=== PATIENT | male | born 1935 | race Caucasian/White ===

== ENCOUNTER 2018-03-18 17:40 | Emergency (ER) | payer MEDICARE ==
--- NOTE | 2018-03-18 18:46 | RAD ---
LEFT FOOT THREE VIEWS: History: 82-year-old male with history of injury following a fall with left foot pain. FINDINGS: Minimal soft tissue swelling over the dorsal aspect of the foot. Worsening arthrosis changes of the f irst metatarsal phalangeal joint with some minimal medial soft tissue swelling when compared to the p rior 06-10-14 study. No acute fracture or dislocation. Small plantar and calcaneal enthesophytes. IMPRESSION: Soft tissue swelling, particularly medially and over the dorsal aspect of the foot with worsening art hrosis changes of the first metatarsal phalangeal joint. No overt acute fracture. POS: [facility]
--- NOTE | 2018-03-18 18:51 | RAD ---
LEFT ANKLE THREE VIEWS: History: Left ankle pain following an injury from a fall. FINDINGS: Minimal generalized soft tissue swelling of the lower leg and ankle and foot. There are some arthrosi s and degenerative changes of the ankle joint. No fracture or dislocation. IMPRESSION: Soft tissue swelling. Degenerative changes. No fracture or dislocation. POS: [facility]
--- NOTE | 2018-03-18 18:55 | RAD ---
LEFT KNEE FOUR VIEWS: History: Left knee pain after a fall at home. FINDINGS: There are degenerative and osteoarthrosis changes of the knee joint. Minimal increased density in the suprapatellar recess, probably some joint fluid. IMPRESSION: Degenerative and osteoarthrosis. No fracture or dislocation. POS: [facility]
[2018-03-18] MEDS ORDERED: Acetaminophen 500 MG TAB ONE (19:24)
[2018-03-18 19:46] LABS: Bilirubin Negative (Negative); Blood, Urine Moderate (Negative); Clarity CLOUDY (Clear); Glucose, Urine (Dipstick) Negative (Negative); Leukocyte Small (Negative); Nitrite Negative (Negative); Protein, Urine (Dipstick) 300 mg/dL (Neg-Trace); Specific Gravity, Urine 1.012 (1.002-1.036); pH, Urine 5.5 (5.0-9.0)
[2018-03-18 19:48] LABS: Bacteria/HPF 4+ HPF (None Seen); Hyaline Casts/LPF 4-6 HYALINE CAST LPF (0-3 Hyaline); Pathc Cast-AUWi Flag 0.58 (0-2.49); RBC/HPF 0-3 HPF (0-3); Squamous Epithelial None Seen HPF (0-3)
[2018-03-18 19:52] LABS: #Lymphocytes 0.8 thou/uL (1.20-3.40); #Monocytes 0.9 thou/uL (0.11-0.59); #Neutrophils 11.2 thou/uL (1.40-6.50); %Basophils 0.2 % (0.0-1.0); %Eosinophils 0.3 % (0.0-10.0); %Lymphocytes 6.2 % (21.0-51.0); %Monocytes 7.1 % (0.0-10.0); %Neutrophils 86.2 % (42.0-75.0); Hemoglobin 11.9 g/dL (14.0-18.0); Mean Corpuscular HGB CONC 34.7 g/dL (32.0-36.0); Mean Corpuscular Hemoglobin 31.9 pg (27.0-31.0); Mean Corpuscular Volume 91.9 fL (78.0-98.0); Mean Platelet Volume 6.5 fL (7.4-10.4); Platelet Count 396 thou/uL (130-400); RBC Distribution Width 13.3 % (11.5-14.5); Red Blood Cell (RBC) Count 3.74 mill/uL (4.70-6.10)
[2018-03-18] MEDS ORDERED: cefTRIAXone\\ROCEPHIN 2 GM VIAL ONE (20:13)
[2018-03-18 20:14] LABS: ALT (SGPT) 15 U/L (8-55); AST (SGOT) 24 U/L (5-34); Albumin 3.5 g/dL (3.4-4.8); Alkaline Phosphatase 45 U/L (40-150); Anion Gap 14 mmol/L (10-20); BUN (Urea Nitrogen) 27 mg/dL (8.4-25.7); Bilirubin, Total 0.9 mg/dL (0.2-1.2); Calc. Creatinine Clearance 0 mL/min (70-130); Calcium 10.6 mg/dL (7.8-10.44); Carbon Dioxide 24 mmol/L (23-31); Chloride 106 mmol/L (98-107); Estimated GFR-MDRD 34; Glucose 123 mg/dL (83-110); Protein, Total 7.5 g/dL (5.8-8.1); Sodium 141 mmol/L (136-145)
[2018-03-18 20:18] LABS: CKMB 1.8 ng/mL (0-6.6); Troponin I 0.046 ng/mL (< 0.028)
[2018-03-18 20:19] LABS: Potassium 2.7 mmol/L (3.5-5.1)
--- NOTE | 2018-03-18 20:24 | RAD ---
UPRIGHT PORTABLE CHEST ONE VIEW: History: 82-year-old male with history of left ankle pain after a fall at home. FINDINGS: Minimal cardiomegaly. Monitor leads overlie the chest. No confluent pneumonia, overt edema, or pleura l effusion. IMPRESSION: Minimal cardiomegaly without other acute process. POS: [facility]
[2018-03-18] MEDS ORDERED: Pot Chloride/Pot Bicarb/Cit Ac 25 mEq Effervescent Tablet ONE (20:33)
[2018-03-18] MEDS ORDERED: Ketorolac Tromethamine 30 MG/ML VIAL ONE (23:45)
[2018-03-18] MEDS ORDERED: traMADol HCl 50 MG TAB ONE (23:47)
== END 2018-03-19 00:24 ==
LOC: ERS 17:40
DX: S83.92XA Sprain of unspecified site of left knee, initial encounter (principal); S93.402A Sprain of unspecified ligament of left ankle, initial encounter; S93.602A Unspecified sprain of left foot, initial encounter; E86.0 Dehydration; N39.0 Urinary tract infection, site not specified; I10 Essential (primary) hypertension; Z79.82 Long term (current) use of aspirin; Z79.899 Other long term (current) drug therapy; W19.XXXA Unspecified fall, initial encounter
CPT/HCPCS: 36415; 71045; 80053; 81003; 81015; 82553; 84484; 85025; 87804; 96361; 96365; 96366; J0696; J1885

== ENCOUNTER 2018-03-29 12:19 | Inpatient (IN) | payer MEDICARE ==
[2018-03-29] MEDS ORDERED: Ondansetron PF 4 MG/2 ML Vial IVP PRN (16:05)
[2018-03-29] MEDS ORDERED: Ondansetron ODT 4 MG TAB PO PRN (16:05)
[2018-03-29] MEDS ORDERED: Nitroglycerin 0.4 MG TAB (25 Tab Bottle) PO PRN (16:05)
[2018-03-29] MEDS ORDERED: Acetaminophen 325 MG TAB PO PRN (16:05)
[2018-03-29] MEDS ORDERED: Senokot S 8.6-50 MG TAB PO PRN (16:05)
[2018-03-29] MEDS ORDERED: Calcium Carbonate 500 MG ChewTAB PO PRN (16:12)
[2018-03-29] MEDS ORDERED: Diabetic Tussin 200 MG/10 ML UDCUP PO PRN (16:13)
[2018-03-29] MEDS ORDERED: Fentanyl 100 MCG/2 ML VIAL SLOW IVP PRN (16:18)
[2018-03-29] MEDS ORDERED: HYDROcodone/Acetaminophen 5/325 mg Tablet PO PRN (16:18)
[2018-03-29 16:43] VITALS: BMI 29.8
[2018-03-29 17:25] LABS: #Eosinphils 0.1 thou/uL (0.0-0.7); #Lymphocytes 0.5 thou/uL (1.20-3.40); #Monocytes 0.2 thou/uL (0.11-0.59); #Neutrophils 7.4 thou/uL (1.40-6.50); %Eosinophils 1.3 % (0.0-10.0); %Lymphocytes 5.5 % (21.0-51.0); %Monocytes 2.6 % (0.0-10.0); %Neutrophils 90.6 % (42.0-75.0); Hemoglobin 8.8 g/dL (14.0-18.0); Mean Corpuscular HGB CONC 31.9 g/dL (32.0-36.0); Mean Corpuscular Hemoglobin 29.3 pg (27.0-31.0); Mean Corpuscular Volume 91.9 fL (78.0-98.0); Mean Platelet Volume 6.6 fL (7.4-10.4); Platelet Count 450 thou/uL (130-400); RBC Distribution Width 14.1 % (11.5-14.5); White Blood Cell (WBC) Count 8.2 thou/uL (4.8-10.8)
--- NOTE | 2018-03-29 17:36 | CON ---
DATE OF CONSULTATION: 03/29/2018 PRIMARY GRIND OPERATOR: Shannon Ricketts M.D. REASON FOR CONSULTATION: Heart failure. HISTORY OF PRESENT ILLNESS: Mr. Pro is a very pleasant 82-year-old white gentleman who comes to the hospital for increased shortness of breath. He recently fell and broken ankle. He has been in rehab for several days. He had an acute kidney injury with creatinine up to 4.8. He has been receiv ing IV fluids ever since. This was on 03/18/2018. Yesterday, he began to get a little more short-wi nded. This morning he was hypoxic and short of breath. Chest x-ray was done that showed fluid overl oad. So he was transferred over from rehab to inpatient setting for IV Lasix, telemetry monitoring a nd an echocardiogram. He is doing much better after receiving one dose of 40 Lasix IV and has alread y urinated some clear urine. He otherwise has no other complaints. Denies any chest pain, tightness , pressure, no shortness of breath per Dr. Ricketts for some back in 2014, at which point he was in atria l fibrillation and had a heart catheterization that showed no flow limiting disease. He most recentl y had an echocardiogram in the office with Dr. Ricketts on May of this year and he had an EF of 50%-5 5%. No major valvular abnormalities. There is moderate AI and mild . Otherwise, no other new iss ues. PAST MEDICAL HISTORY: 1. History of atrial fibrillation. 2. Chronic kidney disease stage 4. 3. Normal coronaries. 4. Hyperlipidemia. 5. Hypertension. 6. Type 2 diabetes. 7. Benign prostatic hypertrophy. 8. Allergies. 9. Nephrolithiasis. 10. Prostate cancer. 11. Rotator cuff repair. OUTPATIENT MEDICATIONS: Include: 1. Tramadol. 2. Benadryl. 3. Triamterene/hydrochlorothiazide 37.5/25 mg a day. 4. Flomax. 5. Klor-Con. 6. Simvastatin with niacin. 7. Metoprolol 50 mg b.i.d. 8. Avapro 300 mg daily. 9. Lasix 20 mg daily. 10. Flonase. 11. Benefiber. 12. Nexium. 13. Colchicine. 14. Lotrisone cream. 15. Citalopram. 16. Vitamin D3. 17. Beconase. 18. Aspirin 81 a day. 19. Amlodipine 10 mg a day. 20. . ALLERGIES: No known drug allergies. SOCIAL HISTORY: No alcohol, tobacco or drugs. He is a former commercial producer. FAMILY HISTORY: Noncontributory. REVIEW OF SYSTEMS: Twelve point review of systems was done and it is all negative except as stated i n the history of present illness. PHYSICAL EXAMINATION: VITAL SIGNS: Temperature 98.2, pulse 80, respiratory rate 16, satting 98% on 3 liters nasal cannula, blood pressure 132/80. GENERAL: Awake, alert, oriented x3, in no distress. HEENT: Normocephalic, atraumatic. NECK: Supple. LUNGS: Had mild crackles at bilateral bases. CARDIOVASCULAR: S1, S2, no S3, S4. Irregularly irregular heart rate in the 80s. ABDOMEN: Soft, positive bowel sounds. EXTREMITIES: No edema. SKIN: Warm and dry. LABORATORY DATA: Laboratory work was reviewed from recent admission on 03/29/2018, hemoglobin of 8.2 , hematocrit of 27, platelet count of 442, white count of 7.8. Chemistries with a creatinine back on 03/18/2018 of 1.9, increased all the way to 4.3 on 03/22/2018 and is back down to 2.65, GFR was 23. IMAGING DATA: 1. CT of the brain was reviewed. 2. Chest x-ray was reviewed. Findings consistent with CHF. ASSESSMENT AND PLAN: 1. Acute on chronic diastolic heart failure. 2. Acute kidney injury on chronic kidney disease, currently stage 4. 3. Moderate AI and mild . PLAN: 1. Agree with gentle diuresis with 40 mg IV Lasix. We will take it a day by day basis to see when w e can switch him to orals. 2. Echocardiogram pending. 3. Continue other medications. Avoid nephrotoxic agents. Thank you for letting us to participate in the care of your patient. We will follow.
[2018-03-29 17:46] LABS: Troponin I 0.021 ng/mL (< 0.028)
[2018-03-29] MEDS: predniSONE 20 MG TAB PO SCH (17:50)
[2018-03-29 18:03] LABS: ALT (SGPT) 17 U/L (8-55); AST (SGOT) 38 U/L (5-34); Albumin 2.7 g/dL (3.4-4.8); Alkaline Phosphatase 37 U/L (40-150); Anion Gap 17 mmol/L (10-20); BUN (Urea Nitrogen) 76 mg/dL (8.4-25.7); Bilirubin, Total 0.3 mg/dL (0.2-1.2); Calc. Creatinine Clearance 29 mL/min (70-130); Calcium 9.8 mg/dL (7.8-10.44); Carbon Dioxide 18 mmol/L (23-31); Chloride 110 mmol/L (98-107); Estimated GFR-MDRD 23; Globulin 3.6 g/dL (2.4-3.5); Glucose 116 mg/dL (83-110); Potassium 4.6 mmol/L (3.5-5.1); Protein, Total 6.3 g/dL (5.8-8.1); Sodium 140 mmol/L (136-145)
--- NOTE | 2018-03-29 18:07 | HP ---
DATE OF ADMISSION: 03/29/2018 PRIMARY CARE PHYSICIAN: Dr. Monique. PRIMARY PRINCIPAL PRODUCT MANAGER: Dr. Mike Ricketts. CHIEF COMPLAINT: Shortness of breath/volume overload. The patient is a transfer from inpatient rehabilitation. HISTORY OF PRESENT ILLNESS: The patient is an 82-year-old male with paroxysmal atrial fibrillation, hypertension, hyperlipidemia, and diabetes mellitus type 2 , presented to the emergency room 10 days ago with an episode of fall. He was discharged to inpatient rehabilitation at that time. One week prior to this, he had a right ankle fracture (lateral malleolar fracture) that was that was managed conservatively. He was also found to have acute kidney injury with creatinine of 4.31. He was placed on IV fluids at the rehabilitation. Over the last few days, patient developed gradual worsening shortness of breath. The shortness of breath got worse today. IV fluids were discontinued. He was started on IV Lasix. He also had some altered mentation yesterday that was attributed to Tylenol No. 3. A CT scan of the brain was obtained yesterday that was negative. He underwent a chest x-ray earlier today that showed pulmonary vascular congestion. He was sent to the hospital as a direct admit from the rehabilitation for possible congestive heart failure. He also had a recent gout flare at the rehabilitation. He was placed on prednisone taper yesterday. Patient also had some dark stool earlier today and stool for occult blood came back positive at the rehabilitation. PAST MEDICAL HISTORY: 1. Chronic kidney disease stage 3. 2. Diabetes mellitus type 2. 3. Hypertension. 4. Hyperlipidemia. 5. History of renal calculi. 6. Rotator cuff surgery. 7. Recent right ankle fracture. 8. Gout. 9. Physical deconditioning. 10. Negative cardiac catheterization in [address] Ricketts. 11. Aortic valve regurgitation. 12. History of prostate cancer. 13. Paroxysmal atrial fibrillation. PAST SURGICAL HISTORY: 1. Cardiac catheterization. 2. Rotator cuff surgery. ALLERGIES: No known drug allergies. CURRENT HOME MEDICATIONS: At the rehabilitation. Tylenol No. 3 as needed, aspirin 81 mg daily, cholecalciferol 1000 units daily, citalopram 20 mg daily, clonidine 0.05 mg daily, colchicine 0.6 mg b.i.d., vitamin B12 of 1000 mcg daily , fenofibrate 145 mcg daily, metoprolol tartrate 50 mg b.i.d., mirabegron 50 mg extended release daily, multivitamin 1 tablet daily, Procardia-XL 30 mg b.i.d., Protonix 40 mg daily, MiraLax 17 grams daily, potassium chloride 10 mEq daily, Flomax 0.4 mg b.i.d. SOCIAL HISTORY: Patient currently lives at home with his family. He denies any current use of smoking, alcohol or drug use. He is FULL [employer], makes his own decisions with the help of his family. FAMILY HISTORY: Negative for premature coronary artery disease. REVIEW OF SYSTEMS: The following complete review of systems was negative, unless otherwise mentioned in the HPI or below: Constitutional: Weight loss or gain, ability to conduct usual activities. Skin: Rash, itching. Eyes: Double vision, pain. ENT/Mouth: Nose bleeding, neck stiffness, pain, tenderness. Cardiovascular: Palpitations, dyspnea on exertion, orthopnea. Respiratory: Shortness of breath, wheezing, cough, hemoptysis, fever or night sweats. Gastrointestinal: Poor appetite, abdominal pain, heartburn, nausea, vomiting, constipation, or diarrhea. Genitourinary: Urgency, frequency, dysuria, nocturia. Musculoskeletal: Pain, swelling. Neurologic/Psychiatric: Anxiety, depression. Allergy/Immunologic: Skin rash, bleeding tendency. PHYSICAL EXAMINATION: VITAL SIGNS: Earlier today showed temperature 98.2, heart rate 73, respiration rate 18, blood pressure was 114/66, O2 saturation of 96% on nasal cannula. GENERAL: An 82-year-old male in minimal respiratory distress. HEENT: Atraumatic, normocephalic. Sclerae are anicteric. Moist mucous membrane, no oral lesion. NECK: Supple, no JVD appreciated. No carotid bruit. LUNGS: Showed diminished air entry at bilateral bases with scattered rhonchi. There were few rales at the bases. There was minimal accessory muscle use. HEART: S1, S2 present. Irregularly irregular, 2/6 systolic murmur over the left lateral sternal border. No heaves or pulsation. ABDOMEN: Soft, nontender, bowel sounds present, no rebound or guarding. EXTREMITIES: Bilateral lower extremity edema up to 3+. There is a brace in the right leg. SKIN: Warm and dry. LYMPH NODES: No palpable lymph nodes in the neck. PERIPHERAL VASCULAR: Radial pulses palpable bilaterally. MUSCULOSKELETAL: No joint swelling or tenderness. LABORATORY FINDINGS: CBC earlier today showed WBC 7.8, hemoglobin 8.2, hematocrit 27, platelet count of 442. His hemoglobin 10 days ago was 11.9. Chemistries showed a creatinine 2.65 with BUN 77. His creatinine last week was 4.31, sodium 139, potassium 4.4, chloride 112, bicarbonate 18. Urinalysis last week showed UTI. Family report, patient has completed treatment. Stool for occult blood yesterday was positive. Influenza screen yesterday was negative. Chest x-ray by my review showed findings consistent with congestive heart failure. Telemetry monitoring by my review showed atrial fibrillation. IMPRESSION: 1. Volume overload/suspected acute on chronic diastolic heart failure exacerbation. 2. Acute kidney injury on chronic kidney disease stage 3. 3. Recent right ankle fracture. 4. Melena with acute blood loss anemia 5. Recent urinary tract infection, completed antibiotics per family report. 6. Hypertension. 7. Diabetes mellitus type 2. diet controlled. 8. Hyperlipidemia. 9. Gastroesophageal reflux disease. 10. Benign prostatic hypertrophy. 11. Gout with recent flare, currently on prednisone. 12. Recent toxic metabolic encephalopathy secondary to narcotics, improved. 13. Bilateral lower extremity edema with some tenderness, rule out deep venous thrombosis. PLAN: The patient will be monitored on the telemetry unit. We will start him on IV diuretics with Lasix 40 mg IV daily. Cardiology and Nephrology will be consulted. Echocardiogram will be obtained. Hold aspirin. We will repeat labs including troponins. Fluid restriction. Consult physical therapy, occupation therapy. Deep venous thrombosis prophylaxis with sequential compression devices for now. We will avoid heparin or Lovenox due to suspected gastrointestinal bleeding. Plan of care was discussed with the patient and the family in detail. They stated understanding. MTDD
[2018-03-29] MEDS ORDERED: Cepastat Lozenges 1 LOZ PO PRN (19:10)
[2018-03-29] MEDS: NIFEdipine XL 30 MG TAB PO SCH (21:09)
[2018-03-29] MEDS: Tamsulosin HCl 0.4 MG CAP PO SCH (21:10)
[2018-03-29] MEDS: Metoprolol Tartrate 50 MG TAB PO SCH (21:11)
[2018-03-30 05:51] LABS: #Eosinphils 0.1 thou/uL (0.0-0.7); #Lymphocytes 0.8 thou/uL (1.20-3.40); #Monocytes 0.3 thou/uL (0.11-0.59); #Neutrophils 5.9 thou/uL (1.40-6.50); %Basophils 0.1 % (0.0-1.0); %Eosinophils 1.1 % (0.0-10.0); %Lymphocytes 10.7 % (21.0-51.0); %Monocytes 4.1 % (0.0-10.0); Hemoglobin 8.3 g/dL (14.0-18.0); Mean Corpuscular HGB CONC 31.4 g/dL (32.0-36.0); Mean Corpuscular Hemoglobin 28.7 pg (27.0-31.0); Mean Corpuscular Volume 91.3 fL (78.0-98.0); Mean Platelet Volume 6.3 fL (7.4-10.4); Platelet Count 407 thou/uL (130-400); RBC Distribution Width 14.1 % (11.5-14.5)
[2018-03-30 06:14] LABS: Anion Gap 14 mmol/L (10-20); BUN (Urea Nitrogen) 72 mg/dL (8.4-25.7); Calc. Creatinine Clearance 29 mL/min (70-130); Calcium 9.9 mg/dL (7.8-10.44); Carbon Dioxide 20 mmol/L (23-31); Chloride 111 mmol/L (98-107); Estimated GFR-MDRD 23; Glucose 105 mg/dL (83-110); Potassium 4.2 mmol/L (3.5-5.1); Sodium 141 mmol/L (136-145)
--- NOTE | 2018-03-30 08:37 | ULT ---
ULTRASOUND WITH DOPPLER DUPLEX VENOUS LOWER EXTREMITY BILATERAL: CPT: 60022 ICD-10-PCS: B54D HISTORY: Bilateral lower extremity edema. TECHNIQUE: Color flow Doppler, spectral waveform analysis of pulsed Doppler, and hedrick-scale imaging with risa fina and augmentation, were used to evaluate the bilateral common femoral, femoral, popliteal, acid cleaner ior tibial, and superficial femoral, veins; and the proximal portions of the profunda femoral and gre ater saphenous, veins. FINDINGS: There is appropriate compressibility and flow within the imaged deep vein system of each lower extrem ity without evidence of DVT. IMPRESSION: No deep vein thrombosis identified. POS: [facility]
[2018-03-30] MEDS ORDERED: Furosemide 40 MG/4 ML VIAL SLOW IVP SCH (09:00)
[2018-03-30] MEDS ORDERED: Aspirin 81 mg Enteric Coated Tablet PO SCH (09:00)
--- NOTE | 2018-03-30 09:33 | CON ---
DATE OF CONSULTATION: 03/30/2018 HISTORY OF PRESENT ILLNESS: Mr. Pro is an 82-year-old white male who was transferred from the [facility] for new onset congestive heart failure. I was following this patient at the rehab for his acute kidney injury on top of his chronic renal failure. He was given volume repletion for creatinine of 3.2. This improved with the said volume repletion. However, 2 days later, he developed CHF. The fe eling is that this could be simply from a volume overload standpoint. However, Cardiology has been c onsulted and he will be reevaluated. Please note that this patient had cardiac catheterization back in 2014, which was negative. The patient also has longstanding history of gout. We are now following this patient for his acute kidney injury on top of his chronic renal failure. REVIEW OF SYSTEMS: Shortness of breath is much improved. No chest pain, no syncopal episode, no monse sea, no vomiting. No hematochezia, ? of melena, no hematemesis, no abdominal pain. Positive for rig ht ankle and joint pain. 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 PAST SURGICAL HISTORY: 1. Status post cardiac catheterization. 2. Status post rotator cuff surgery. ALLERGIES: No known drug allergies. TRAUMA: Status post right ankle fracture. IMMUNIZATIONS: Up to date. HOSPITALIZATION: Please see past medical history. SOCIAL HISTORY: The patient has a live-in girlfriend, several children. Currently, no smoking, no a lcohol intake, sedentary lifestyle. FAMILY HISTORY: No family history of ESRD. PHYSICAL EXAMINATION: VITAL SIGNS: Blood pressure is 145/72, heart rate 101, respiratory rate 18, temperature 98.4, pulse ox 95%. GENERAL: Noted to be awake, alert, comfortable, not in distress, obese. SKIN: Adequate turgor. HEENT: Slightly pale conjunctivae, anicteric sclerae. NECK: No neck mass, no carotid bruits, no JVD. CHEST: No deformities. LUNGS: Decreased breath sounds. HEART: Tachycardic, no murmur, no gallops or rubs. ABDOMEN: Globular, soft, nontender, no masses. EXTREMITIES: Trace edema. Positive for right ankle cast. NEUROLOGICAL: Awake, oriented to 3 spheres. Moving all extremities. No tremors, no asterixis, no a taxia. MEDICATIONS: DuoNeb q.2 hours p.r.n. and q.4 hours regular treatment, Tums 1000 mg q.4 hours p.r.n., Lasix 40 mg IV daily, clonidine 0.5 mg - half a tablet daily, Celexa 20 mg daily, Lopressor 50 mg p. o. b.i.d., nifedipine 30 mg p.o. b.i.d., Zofran p.r.n., MiraLax 17 grams daily, prednisone 10 mg p.o. b.i.d., Flomax 0.4 mg once a day. LABORATORY DATA: Of 03/30/2018, white count 7, hemoglobin 8.3, hematocrit 26.5, sodium 141, potassiu m 4.2, chloride 111, carbon dioxide 20, BUN 72, creatinine 2.71. On 03/29/2018, creatinine 2.65. On 03/28/2018, creatinine 2.84. On 03/27/2018, creatinine 3.17. IMAGING: Chest x-ray shows CHF. ASSESSMENT AND PLAN: 1. New onset congestive heart failure - on IV Lasix. Continue current management. Cardiology has e valuated the patient. 2. Acute kidney injury/chronic renal failure, stable. Continue current low dose diuretic regimen. Continue to hold off any normal saline for the moment. 3. Status post right ankle fracture - stable. Supportive care. If the patient is stable in the next 24-48 hours, consider discharging him back to rehabilitation.
[2018-03-30] MEDS: Metoprolol Tartrate 50 MG TAB PO SCH ×2 (09:36→20:43)
[2018-03-30] MEDS: NIFEdipine XL 30 MG TAB PO SCH ×2 (09:36→20:43)
[2018-03-30] MEDS: Citalopram 20 MG TAB PO SCH (09:37)
[2018-03-30] MEDS: cloNIDine 0.1 MG TAB PO SCH (09:37)
[2018-03-30] MEDS: predniSONE 20 MG TAB PO SCH ×2 (09:37→16:55)
[2018-03-30] MEDS: Polyethylene Glycol 3350 17 GM Packet PO SCH (09:38)
[2018-03-30] MEDS: Pantoprazole 40 MG VIAL IVP SCH ×2 (09:38→20:44)
[2018-03-30 10:14] LABS: Hemoglobin 8.5 g/dL (14.0-18.0)
[2018-03-30 10:38] LABS: Iron 28 ug/dL (65-175); Iron Binding Capacity, Total 221 mcg/dL (261-462)
[2018-03-30] MEDS ORDERED: Cepastat Lozenges 1 LOZ PO PRN (10:46)
--- NOTE | 2018-03-30 14:29 | PDOC.CTH ---
Cardiology Progress Note - Subjective No new issues. His breathing is better today. - Objective Vital Signs Temp Pulse Resp BP Pulse Ox 03/30/18 12:25 97.6 F 94 18 154/81 H 96 03/30/18 10:45 89 16 94 L 03/30/18 09:20 95 03/30/18 07:21 98.4 F 101 H 18 145/72 H 95 03/30/18 07:01 94 16 92 L 03/30/18 03:40 97.7 F 89 20 140/76 96 Weight 205 lb 2 oz 03/29/18 03/30/18 03/31/18 06:59 06:59 06:59 Intake Total 175 Output Total 2200 Balance -2024 - Physical Examination General/Neuro: alert & oriented x3, NAD Neck: no JVD present Lungs: unlabored respirations Heart: RRR Abdomen: NT/ND Extremities: + edema B (1+) - Telemetry Telemetry Rhythm: NSR - Labs Result Diagrams: 03/30/18 09:54 03/30/18 05:31 Troponin/CKMB Troponin I 0.021 ng/mL (< 0.028) 03/29/18 17:14 - Assessment/Plan 1. Acute on chronic diastolic heart failure. 2. Acute on chronic kidney injury 3. Moderate AI 4. Mild . 5. Chronic anemia, suspect chronic GI source. 6. Paroxysmal foib PLAN: - Continue gentle diuresis. - CAMPBELL's and SCD for DVT prophylaixs.
--- NOTE | 2018-03-30 15:39 | CON ---
DATE OF CONSULTATION: 03/30/2018 CONSULTING PHYSICIAN: Toño Schwartz MD. REASON FOR CONSULTATION: Positive fecal occult blood test, anemia. HISTORY OF PRESENT ILLNESS: The patient is an 82-year-old male with a past medical history of paroxy smal atrial fibrillation, hypertension, hyperlipidemia, diabetes, gout, chronic kidney disease, stage 3, and prostate cancer, who was initially admitted to the hospital 10 days ago after a fall. He jose alfredo tained a right ankle fracture that was managed conservatively and ultimately discharged to [facility] for further management. However, he was also found to have an acute kidney injury whil e at the [facility] and was given IV fluids there in order to correct his worsening reinier l function. With his increased IV fluid administration, he started developing increased shortness of breath as well as increased swelling in his lower extremities that were concerning for hypervolemia. During the same time, he was also given Tylenol #3 for pain associated with the right ankle fractur e and exhibited acute altered mental status with a loss of sensorium that corrected with discontinuat ion of the narcotic. He was subsequently readmitted and reevaluated in the ER on 03/29/2018 with a c hest x-ray showing increased pulmonary vascular congestion concerning for possible congestive heart f ailure. While in the ER, he had a fecal occult blood test performed secondary to anemia noted on lab s, which was then positive. Upon conferring with the patient and family today, he states that he did have a darker stool yesterda y, but it was not black in coloration and was solid in consistency. He further denies any overt GI b lood loss including hematemesis or hematochezia. He has approximately one solid/soft bowel movement per day with no difficulty with defecation and no change in his stool caliber over the last 1-2 month s. He also denies any nausea, vomiting, fevers, chills, abdominal pain, weight loss, odynophagia, dy sphagia, or abdominal pain during the last 1-2 months. Of note, his last colonoscopy was performed o n 06/19/2007 with a small sigmoid colon polyp removed at that time. Pathology results showed the pre sence of a lymphoid aggregate only. REVIEW OF SYSTEMS: A 10-category review of systems was obtained with all responses negative except f or the pertinent positives as listed in the HPI. PAST MEDICAL HISTORY: As per HPI. PAST SURGICAL HISTORY: Rotator cuff hip surgery, right ankle fracture reduction, and cardiac cathete rization. FAMILY HISTORY: Denies any family history of colon polyps or colon cancer. SOCIAL HISTORY: Denies any tobacco, alcohol or illicit drug use. OUTPATIENT MEDICATIONS: Reviewed. ALLERGIES: No known drug allergies. PHYSICAL EXAMINATION: VITAL SIGNS: Temperature 97.6, pulse 94, blood pressure 154/81, respiratory rate 18, satting 96% on 2 liters nasal cannula. GENERAL: The patient was lying in bed, in no acute distress. Alert and oriented x4. NECK: Supple. No JVD noted. No cervical chain or supraclavicular lymphadenopathy noted either. CARDIOVASCULAR: Irregularly irregular heart rate with no discernible murmurs, gallops or rubs. RESPIRATORY: Mild crackles in the bilateral lower lung bases with possible wheezing noted in the rula ateral lower lung bases, otherwise clear to auscultation in the upper bilateral lungs. ABDOMEN: Normoactive bowel sounds, soft, nontender, nondistended. EXTREMITIES: A 1+/2+ bilateral lower extremity edema to the knee. LABORATORY DATA: CBC with a white blood cell count of 7, hemoglobin 8.3, hematocrit 26.5, platelets 407. Chemistry with a sodium of 141, potassium 4.2, chloride 111, CO2 of 20, BUN 72, creatinine 2.71 , glucose 105. MCV 91, RDW 14. Iron 28, TIBC 221, ferritin 170. IMAGING DATA: Chest x-ray was performed on 03/29/2018, which showed cardiomegaly with mild edema con sistent with mildly decompensated congestive heart failure. ASSESSMENT AND PLAN: The patient is an 82-year-old male with past medical history of paroxysmal atri al fibrillation, hypertension, hyperlipidemia, diabetes, gout, chronic kidney disease stage 3, and pr ostate cancer presenting with anemia and positive fecal occult blood testing. Anemia/possible GI bleed: The patient is presenting with a recent history of right ankle fracture th at was ultimately intervened upon during his last hospitalization with [facility] physical deconditioning. While in the rehabilitation facility, he was given a signifi cant amount of IV fluids, resulting in mild decompensated congestive heart failure as seen on physica l examination today as well as imaging. During that time, he was also noted to have a decreased H&H with his white blood cell count, his H&H and platelets downtrending initially with the administration of IV fluids, suggesting a hemodilutional component. He has remained stable over the last 5-7 days since that time with iron studies indicating more of an anemia of chronic disease. He also has a nor mal MCV and normal RDW, which further leans away from a diagnosis of iron deficiency anemia or chroni c gastrointestinal blood loss. At this time, his anemia seems to be more related to an anemia of chr onic disease rather than a GI origin with the only indicator of a possible GI bleeding source being a positive fecal occult blood test (the patient denies any melenic type stools). Being that the fecal occult blood test is only a colorectal cancer screening test with a poor positive predictive value f or active gastrointestinal bleeding, the patient may need a screening colonoscopy here in the near fu ture; however, given his significant medical comorbidities and congestive heart failure on examinatio n today, delay in this colonoscopy is recommended. RECOMMENDATIONS: 1. We would continue to trend H&H and transfuse as necessary to maintain an H&H of 11/25. 2. We would continue to monitor for signs of GI bleeding while inpatient. 3. Would defer colonoscopy for now given lack of findings of chronic gastrointestinal blood loss and with recent colonoscopy being approximately 10 years ago with normal findings. Would recommend ally sousa the patient follow up in the GI clinic with Dr. Dominique as an outpatient after optimization of his cu rrent clinical status. We will sign off at this time. Please call with any additional questions.
--- NOTE | 2018-03-30 16:12 | PDOC.PN ---
- Subjective Encounter Start Date: 03/30/18 Encounter Start Time: 09:00 Patient seen and examined for CHF/Volume overload. Feels better. No new complaints. No overnight events - Objective Resuscitation Status: Resuscitation Status FULL:Full Resuscitation MAR Reviewed: Yes Vital Signs & Weight: Vital Signs (12 hours) Temp Pulse Resp BP Pulse Ox 03/30/18 15:04 97 16 95 03/30/18 12:25 97.6 F 94 18 154/81 H 96 03/30/18 10:45 89 16 94 L 03/30/18 09:20 95 03/30/18 07:21 98.4 F 101 H 18 145/72 H 95 03/30/18 07:01 94 16 92 L Weight Weight 205 lb 2 oz I&O: 03/29/18 03/30/18 03/31/18 06:59 06:59 06:59 Intake Total 175 Output Total 2200 Balance -2024 Result Diagrams: 03/30/18 16:44 03/30/18 05:31 EKG Reviewed by me: Yes (Tele Afib) Phys Exam - Physical Examination Constitutional: NAD Respiratory: no wheezing, no rhonchi few bibasilar rales Cardiovascular: RRR, no rub Gastrointestinal: soft, non-tender, positive bowel sounds Musculoskeletal: edema present Neurological: non-focal Dx/Plan - Plan IMPRESSION: 1. Volume overload/suspected acute on chronic diastolic heart failure exacerbation. 2. Acute kidney injury on chronic kidney disease stage 3. 3. Recent right ankle fracture. 4. ?Melena with acute blood loss anemia 5. Recent urinary tract infection, completed antibiotics per family report. 6. Hypertension. 7. Diabetes mellitus type 2. diet controlled. 8. Hyperlipidemia. 9. Gastroesophageal reflux disease. 10. Benign prostatic hypertrophy. 11. Gout with recent flare, currently on prednisone. 12. Recent toxic metabolic encephalopathy secondary to narcotics, improved. 13. Bilateral lower extremity edema - DVT ruled out PLAN: Cont IV Lasix Await Echo AM labs Clear liqd diet for possible Endoscopy Cont other meds as below PT/OT SCDs Review of Systems - Review of Systems Cardiovascular: negative: chest pain, palpitations, orthopnea, paroxysmal nocturnal dyspnea, edema, light headedness, other Genitourinary: negative: Dysuria, Frequency, Incontinence, Hematuria, Retention , Other - Medications/Allergies Allergies/Adverse Reactions: Allergies Allergy/AdvReac Type Severity Reaction Status Date / Time No Known Allergies Allergy Verified 06/09/14 03:46 Medications: Current Medications Acetaminophen (Tylenol) 650 mg PO Q4H PRN PRN Reason: Headache/Fever/Mild Pain (1-3) Albuterol/Ipratropium (Duoneb) 3 ml NEB [id number] [facility] Last Admin: 03/30/18 15:04 Dose: 3 ml Albuterol/Ipratropium (Duoneb) 3 ml NEB [id number] PRN PRN Reason: SOB &/or Wheezing Calcium Carbonate (Tums) 1,000 mg PO Q4H PRN PRN Reason: Heartburn or Indigestion Citalopram Hydrobromide (Celexa) 20 mg PO DAILY [facility] Last Admin: 03/30/18 09:37 Dose: 20 mg Clonidine (Catapres) 0.05 mg PO DAILY [facility] Last Admin: 03/30/18 09:37 Dose: 0.05 mg Furosemide (Lasix) 40 mg SLOW IVP DAILY [facility] Last Admin: 03/30/18 09:38 Dose: 40 mg Guaifenesin (Robitussin Sf) 200 mg PO Q4H PRN PRN Reason: Cough Metoprolol Tartrate (Lopressor) 50 mg PO BID [facility] Last Admin: 03/30/18 09:36 Dose: 50 mg Mirabegron (Myrbetriq Er) 50 mg PO DAILY [facility] Last Admin: 03/30/18 09:37 Dose: 50 mg Nifedipine (Procardia Xl) 30 mg PO BID [facility] Last Admin: 03/30/18 09:36 Dose: 30 mg Nitroglycerin (Nitrostat) 0.4 mg PO Q5MIN PRN PRN Reason: Chest Pain Ondansetron HCl (Zofran Odt) 4 mg PO Q6H PRN PRN Reason: Nausea/Vomiting Ondansetron HCl (Zofran) 4 mg IVP Q6H PRN PRN Reason: Nausea/Vomiting Pantoprazole Sodium (Protonix) 40 mg IVP Q12HR [facility] Last Admin: 03/30/18 09:38 Dose: 40 mg Polyethylene Glycol (Miralax) 17 gm PO DAILY [facility] Last Admin: 03/30/18 09:38 Dose: Not Given Prednisone (Prednisone) 10 mg PO BID-[facility] Last Admin: 03/30/18 09:37 Dose: 10 mg Senna/Docusate Sodium (Senokot S) 2 tab PO BID PRN PRN Reason: Constipation Sodium Chloride (Flush - Normal Saline) 10 ml IVF PRN PRN PRN Reason: Saline Flush Tamsulosin HCl (Flomax) 0.4 mg PO HS [facility] Last Admin: 03/29/18 21:10 Dose: 0.4 mg Throat Lozenges (Cepastat Lozenges) 1 beatrice PO Q2H PRN PRN Reason: Cough Throat Lozenges (Cepastat Lozenges) 1 beatrice PO Q2H PRN PRN Reason: Sore Throat
[2018-03-30 16:50] LABS: Hemoglobin 8.8 g/dL (14.0-18.0)
[2018-03-30] MEDS: Tamsulosin HCl 0.4 MG CAP PO SCH (20:43)
[2018-03-31 04:56] LABS: #Eosinphils 0.1 thou/uL (0.0-0.7); #Lymphocytes 0.8 thou/uL (1.20-3.40); #Monocytes 0.4 thou/uL (0.11-0.59); #Neutrophils 7.3 thou/uL (1.40-6.50); %Eosinophils 1.5 % (0.0-10.0); %Lymphocytes 8.7 % (21.0-51.0); %Monocytes 4.3 % (0.0-10.0); %Neutrophils 85.5 % (42.0-75.0); Hemoglobin 8.6 g/dL (14.0-18.0); Mean Corpuscular HGB CONC 32.1 g/dL (32.0-36.0); Mean Corpuscular Volume 90.2 fL (78.0-98.0); Mean Platelet Volume 6.5 fL (7.4-10.4); Platelet Count 405 thou/uL (130-400); RBC Distribution Width 14.2 % (11.5-14.5); Red Blood Cell (RBC) Count 2.97 mill/uL (4.70-6.10); White Blood Cell (WBC) Count 8.6 thou/uL (4.8-10.8)
[2018-03-31 05:19] LABS: Anion Gap 15 mmol/L (10-20); BUN (Urea Nitrogen) 66 mg/dL (8.4-25.7); Calc. Creatinine Clearance 28 mL/min (70-130); Calcium 9.8 mg/dL (7.8-10.44); Carbon Dioxide 23 mmol/L (23-31); Chloride 106 mmol/L (98-107); Estimated GFR-MDRD 22; Glucose 104 mg/dL (83-110); Potassium 3.9 mmol/L (3.5-5.1); Sodium 140 mmol/L (136-145)
[2018-03-31] MEDS ORDERED: Sodium Chloride 0.65% Nasal 44 ML BOT EA NARE PRN (09:27)
[2018-03-31] MEDS: cloNIDine 0.1 MG TAB PO SCH (09:49)
[2018-03-31] MEDS: Furosemide 20 MG TAB PO SCH (09:50)
[2018-03-31] MEDS: predniSONE 20 MG TAB PO SCH (09:50)
[2018-03-31] MEDS: Metoprolol Tartrate 50 MG TAB PO SCH ×2 (09:50→20:15)
[2018-03-31] MEDS: NIFEdipine XL 30 MG TAB PO SCH ×2 (09:50→20:16)
[2018-03-31] MEDS: Citalopram 20 MG TAB PO SCH (09:51)
[2018-03-31] MEDS: Polyethylene Glycol 3350 17 GM Packet PO SCH (09:51)
[2018-03-31] MEDS: Pantoprazole 40 MG VIAL IVP SCH ×2 (09:51→20:17)
--- NOTE | 2018-03-31 10:36 | PRG ---
DATE OF SERVICE: 03/31/2018 RENAL MEDICINE SUBJECTIVE: Mr. Pro is an 82-year-old white male who was at rehab, was admitted for CHF. He wa s started to be diuresed with improvement with the shortness of breath. In addition, a cardiac echo was done, which showed a normal EF. He most likely has diastolic dysfunction. He was initially volu me repleted due to the worsening renal dysfunction back at the rehabilitation. I noted the creatinin e was noted at 2.8, which is slightly higher from yesterday at 2.71. The plan is to change Lasix to 20 mg tab once a day from 40 mg IV daily. He was also evaluated by the GI Service, Dr. Coburn and the recommendation is to observe this patient and to give blood as needed. He will follow up as an outp atient with Dr. Dominique for a possible repeat colonoscopy. No other complaints. He is feeling better. OBJECTIVE: VITAL SIGNS: Blood pressure is 170/89, heart rate 86, respiratory rate 18, temperature 98, pulse ox 95%. GENERAL: Noted to be awake, alert, comfortable, not in distress. SKIN: Adequate turgor. HEENT: Slightly pale conjunctivae, anicteric sclerae. NECK: No neck mass, no carotid bruits, no JVD. CHEST: No deformities. LUNGS: Decreased breath sounds. HEART: Normal sinus rhythm. No murmur, no gallops, no rubs. ABDOMEN: Globular, soft, nontender, no masses. EXTREMITIES: No edema. Right ankle brace. MEDICATIONS: Medications of 03/31/2018 was reviewed. LABORATORY DATA: Laboratories of 03/31/2018, white count 8.6, hemoglobin 8.6. Sodium 140, potassium 3.9, chloride 106, carbon dioxide 23, BUN 66, creatinine 2.8, glucose 104, calcium 9.8. ASSESSMENT AND PLAN: 1. Acute kidney injury -- stable. Renal function slightly high at 2.8 from 2.71 yesterday. We will decrease dose of furosemide from 40 to 20 mg tablet once a day. 2. Congestive heart failure, clinically much improved. Continue supportive care. Normal EF on card iac echo. 3. Chronic anemia. Continue to observe. No recommendations for colonoscopy at this hospitalization . From a renal point of view, this patient can be discharged back to rehabilitation.
--- NOTE | 2018-03-31 18:47 | PDOC.PN ---
- Subjective Encounter Start Date: 03/31/18 Encounter Start Time: 08:30 Patient seen and examined for Volume overload. SOB improving. No Melena or hematochezia. No other complaints. No overnight events - Objective Resuscitation Status: Resuscitation Status FULL:Full Resuscitation MAR Reviewed: Yes Vital Signs & Weight: Vital Signs (12 hours) Temp Pulse Resp BP Pulse Ox 03/31/18 16:58 98.0 F 107 H 18 159/78 H 03/31/18 14:20 112 H 24 H 03/31/18 11:46 97.8 F 85 20 161/79 H 97 03/31/18 11:30 88 20 03/31/18 09:00 105 H 165/84 H 03/31/18 07:40 96 03/31/18 07:38 98 20 96 Weight Weight 205 lb 11.2 oz I&O: 03/30/18 03/31/18 04/01/18 06:59 06:59 06:59 Intake Total 175 1400 Output Total 2200 2750 550 Balance -2025 -1350 -550 Result Diagrams: 03/31/18 04:17 03/31/18 04:17 Additional Labs: Accuchecks 03/30/18 20:35 POC Glucose 143 H Phys Exam - Physical Examination Constitutional: NAD Respiratory: no wheezing, no rhonchi bibasilar rales Cardiovascular: no rub, irregular Gastrointestinal: soft, non-tender, positive bowel sounds Musculoskeletal: edema present Neurological: moves all 4 limbs Dx/Plan - Plan DVT proph w/SCDs IMPRESSION: 1. Volume overload/suspected acute on chronic diastolic heart failure exacerbation. 2. Acute kidney injury on chronic kidney disease stage 3. 3. Recent right ankle fracture. 4. ?Melena with acute blood loss anemia 5. Recent urinary tract infection, completed antibiotics per family report. 6. Hypertension. 7. Diabetes mellitus type 2. diet controlled. 8. Hyperlipidemia. 9. Gastroesophageal reflux disease. 10. Benign prostatic hypertrophy. 11. Gout with recent flare, currently on prednisone. 12. Recent toxic metabolic encephalopathy secondary to narcotics, improved. 13. Bilateral lower extremity edema - DVT ruled out PLAN: Cont Lasix - change to PO Echo reviewed Colonoscopy as outpt Taper Prednisone AM labs DC to Rehab in AM if stable Cont other meds as below Review of Systems - Review of Systems Respiratory: SOB with Excertion. negative: Cough, Dry, Shortness of Breath, Hemoptysis, Pleuritic Pain, Sputum, Wheezing Cardiovascular: negative: chest pain, palpitations, orthopnea, paroxysmal nocturnal dyspnea, edema, light headedness, other - Medications/Allergies Allergies/Adverse Reactions: Allergies Allergy/AdvReac Type Severity Reaction Status Date / Time No Known Allergies Allergy Verified 06/09/14 03:46 Medications: Current Medications Acetaminophen (Tylenol) 650 mg PO Q4H PRN PRN Reason: Headache/Fever/Mild Pain (1-3) Albuterol/Ipratropium (Duoneb) 3 ml NEB [id number] [facility] Last Admin: 03/31/18 14:20 Dose: 3 ml Albuterol/Ipratropium (Duoneb) 3 ml NEB [id number] PRN PRN Reason: SOB &/or Wheezing Aspirin (Aspirin Chewable) 81 mg PO DAILY [facility] Last Admin: 03/31/18 09:50 Dose: 81 mg Calcium Carbonate (Tums) 1,000 mg PO Q4H PRN PRN Reason: Heartburn or Indigestion Citalopram Hydrobromide (Celexa) 20 mg PO DAILY [facility] Last Admin: 03/31/18 09:51 Dose: 20 mg Clonidine (Catapres) 0.05 mg PO DAILY [facility] Last Admin: 03/31/18 09:49 Dose: 0.05 mg Furosemide (Lasix) 20 mg PO DAILY [facility] Last Admin: 03/31/18 09:50 Dose: 20 mg Guaifenesin (Robitussin Sf) 200 mg PO Q4H PRN PRN Reason: Cough Metoprolol Tartrate (Lopressor) 50 mg PO BID [facility] Last Admin: 03/31/18 09:50 Dose: 50 mg Mirabegron (Myrbetriq Er) 50 mg PO DAILY [facility] Last Admin: 03/31/18 17:01 Dose: Not Given Nifedipine (Procardia Xl) 30 mg PO BID [facility] Last Admin: 03/31/18 09:50 Dose: 30 mg Nitroglycerin (Nitrostat) 0.4 mg PO Q5MIN PRN PRN Reason: Chest Pain Ondansetron HCl (Zofran Odt) 4 mg PO Q6H PRN PRN Reason: Nausea/Vomiting Ondansetron HCl (Zofran) 4 mg IVP Q6H PRN PRN Reason: Nausea/Vomiting Pantoprazole Sodium (Protonix) 40 mg IVP Q12HR [facility] Last Admin: 03/31/18 09:51 Dose: 40 mg Polyethylene Glycol (Miralax) 17 gm PO DAILY [facility] Last Admin: 03/31/18 09:51 Dose: Not Given Prednisone (Prednisone) 10 mg PO QAM-WM [facility] Last Admin: 03/31/18 09:50 Dose: 10 mg Senna/Docusate Sodium (Senokot S) 2 tab PO BID PRN PRN Reason: Constipation Sodium Chloride (Flush - Normal Saline) 10 ml IVF PRN PRN PRN Reason: Saline Flush Sodium Chloride (Cass Nasal [place] 0.65%) 0 ml EA NARE TID PRN PRN Reason: Nasal Congestion Tamsulosin HCl (Flomax) 0.4 mg PO HS [facility] Last Admin: 03/30/18 20:43 Dose: 0.4 mg Throat Lozenges (Cepastat Lozenges) 1 beatrice PO Q2H PRN PRN Reason: Cough Throat Lozenges (Cepastat Lozenges) 1 beatrice PO Q2H PRN PRN Reason: Sore Throat
[2018-03-31] MEDS: Tamsulosin HCl 0.4 MG CAP PO SCH (20:16)
--- NOTE | 2018-03-31 22:45 | PDOC.CTH ---
<Adelina Guadarrama - Last Filed: 03/31/18 22:45> Cardiology Progress Note - Subjective The pt seen and examined. No overnight events. No cardiac complaints. - Objective Vital Signs Temp Pulse Resp BP Pulse Ox 03/31/18 20:21 96 03/31/18 20:20 96 03/31/18 20:16 95 03/31/18 20:10 98.1 F 100 20 161/78 H 95 03/31/18 16:58 98.0 F 107 H 18 159/78 H 03/31/18 14:20 112 H 24 H 03/31/18 11:46 97.8 F 85 20 161/79 H 97 03/31/18 11:30 88 20 Weight 205 lb 11.2 oz 03/30/18 03/31/18 04/01/18 06:59 06:59 06:59 Intake Total 175 1400 Output Total 2200 2750 550 Balance -0979 -7814 -550 - Physical Examination General/Neuro: alert & oriented x3 Neck: no JVD present Lungs: other: (diminished at bases) Heart: other: (irregular) Abdomen: soft Extremities: other: (3+ pitting BLE edema) - Telemetry Telemetry Rhythm: AFib - Labs Result Diagrams: 03/31/18 04:17 03/31/18 04:17 Troponin/CKMB Troponin I 0.021 ng/mL (< 0.028) 03/29/18 17:14 - Assessment/Plan 1. Acute on chronic diastolic HF - On BBlocker and Lasix, which was decreased from 40mg to 20mg qd by shoe fitter 2. Acute on CKD stage 3 - worsening today; 3. HTN - Increase Nifedipine from BID to TID and Clonidine from 0.05mg to 1mg qd 4. Hyperlipidemia - 5. DM type 2 - managed by PCP 6. Recent Rt ankle fx - 7. BLE edema - stable 8. Gout - stable wiht predonisone 9. Melena with acute blood loss anemia - Colonoscopy as outpt 10. Parox. Afib - remains in Afib; 11.Chronic anemia, suspect chronic GI source MAR reviewed Review of Systems - Review of Systems Constitutional: reports: no symptoms reported EENTM: reports: no symptoms reported Respiratory: reports: no symptoms reported Cardiac (ROS): reports: no symptoms reported ABD/GI: reports: no symptoms reported : reports: no symptoms reported Musculoskeletal: reports: no symptoms reported Skin: reports: no symptoms reported <Siomara Ricketts - Last Filed: 04/01/18 12:11> Cardiology Progress Note - Objective Vital Signs Temp Pulse Resp BP BP Pulse Ox 04/01/18 11:56 80 20 04/01/18 08:37 169/84 H 04/01/18 08:36 89 04/01/18 06:27 93 L 04/01/18 06:25 92 20 93 L 04/01/18 03:50 96 04/01/18 03:18 98.4 F 89 12 142/84 H 96 Weight 197 lb 12.8 oz 03/31/18 04/01/18 04/02/18 06:59 06:59 06:59 Intake Total 1400 300 Output Total 2750 950 Balance -1350 -650 - Labs Result Diagrams: 04/01/18 06:19 04/01/18 06:19 Troponin/CKMB Troponin I 0.021 ng/mL (< 0.028) 03/29/18 17:14 - Assessment/Plan pt. seen and eval. by me. I agree with the A/P by the MELTER HELPER.
[2018-03-31] MEDS ORDERED: cloNIDine 0.1 MG TAB PO SCH (22:54)
[2018-04-01 06:43] LABS: #Eosinphils 0.2 thou/uL (0.0-0.7); #Lymphocytes 0.9 thou/uL (1.20-3.40); #Monocytes 0.4 thou/uL (0.11-0.59); %Basophils 0.2 % (0.0-1.0); %Eosinophils 1.5 % (0.0-10.0); %Lymphocytes 8.8 % (21.0-51.0); %Neutrophils 85.5 % (42.0-75.0); Hemoglobin 8.9 g/dL (14.0-18.0); Mean Corpuscular Hemoglobin 28.7 pg (27.0-31.0); Mean Corpuscular Volume 89.9 fL (78.0-98.0); Mean Platelet Volume 6.5 fL (7.4-10.4); Platelet Count 397 thou/uL (130-400); RBC Distribution Width 14.2 % (11.5-14.5); White Blood Cell (WBC) Count 10.6 thou/uL (4.8-10.8)
[2018-04-01 07:05] LABS: Anion Gap 15 mmol/L (10-20); BUN (Urea Nitrogen) 57 mg/dL (8.4-25.7); Calc. Creatinine Clearance 30 mL/min (70-130); Calcium 9.3 mg/dL (7.8-10.44); Carbon Dioxide 23 mmol/L (23-31); Chloride 103 mmol/L (98-107); Estimated GFR-MDRD 25; Glucose 96 mg/dL (83-110); Potassium 3.5 mmol/L (3.5-5.1); Sodium 137 mmol/L (136-145)
[2018-04-01] MEDS: Pantoprazole 40 MG VIAL IVP SCH (08:27)
[2018-04-01] MEDS: predniSONE 20 MG TAB PO SCH (08:31)
[2018-04-01] MEDS: Metoprolol Tartrate 50 MG TAB PO SCH (08:35)
[2018-04-01] MEDS: Citalopram 20 MG TAB PO SCH (08:36)
[2018-04-01] MEDS: Furosemide 20 MG TAB PO SCH (08:37)
[2018-04-01 08:38] VITALS: BP 169/84
[2018-04-01] MEDS: Polyethylene Glycol 3350 17 GM Packet PO SCH (08:38)
[2018-04-01] MEDS ORDERED: cloNIDine 0.1 MG TAB PO SCH (09:00)
[2018-04-01] MEDS ORDERED: NIFEdipine XL 30 MG TAB PO SCH (09:00)
--- NOTE | 2018-04-01 11:49 | PRG ---
DATE OF SERVICE: 04/01/2018 SUBJECTIVE: Mr. Pro is an 82-year-old white male, who was seen by the Renal Service at the [facility] for his acute kidney injury secondary to volume depletion. However, with volume repletion, he deve loped CHF. For that reason, he was admitted here at the hospital. He was diuresed and he is much im proved. In addition, we have adjusted his Lasix downwards to at least 20 mg p.o. once a day. No oth er complaints today, doing well. He was also noted to have chronic anemia. GI has evaluated this pa tient and a possible outpatient colonoscopy will be scheduled. No other complaints today. PHYSICAL EXAMINATION: VITAL SIGNS: Blood pressure is 169/84, heart rate 89, respiratory rate 20, pulse ox 93%. GENERAL EXAM: Awake, supine, comfortable, not in overt distress. SKIN: Adequate turgor. HEENT: Slightly pale conjunctivae, anicteric sclerae. NECK: No neck mass, no carotid bruits, no JVD. CHEST: No deformities. LUNGS: Decreased breath sounds. HEART: Normal sinus rhythm. No murmur, no gallops, no rubs. ABDOMEN: Globular, soft, nontender, no masses. EXTREMITIES: No edema, no deformities. Medications of 04/01/2018 reviewed. LABORATORY DATA: Laboratories of 04/01/2018, white count 10.6, hemoglobin 8.9. Sodium 137, potassiu m 3.5, chloride 103, carbon dioxide 23, BUN 57, creatinine 2.53, glucose 96, calcium 9.3. ASSESSMENT AND PLAN: 1. Congestive heart failure, clinically much improved. Continue low dose diuretics. 2. Acute kidney injury on top of his chronic renal failure, improved creatinine from 2.8 to most rec ent value of 2.53 with adjustment of the Lasix downwards. 3. Anemia. Continue to observe. GI following. Agree with planned discharge to long-term. Adjust nifedipine 30 mg XL tab from t.i.d. to once a d ay. Agree with current management.
[2018-04-01 13:14] VITALS: TEMP 98.3
--- NOTE | 2018-04-01 14:50 | ADD-PRG ---
DATE OF SERVICE: 04/01/2018 ADDENDUM I have adjusted nifedipine from 30 mg XL tid to 90 mg XL tab once a day. MTDD
--- NOTE | 2018-04-01 22:22 | EKG ---
Test Reason : Blood Pressure : / mmHG Vent. Rate : 091 BPM Atrial Rate : 094 BPM P-R Int : 000 ms QRS Dur : 100 ms QT Int : 366 ms P-R-T Axes : 000 002 045 degrees QTc Int : 450 ms Atrial fibrillation Inferior infarct , age undetermined Abnormal ECG No previous ECGs available Confirmed by LAURIE MONAHAN (2) on 04/01/2018 10:22:19 PM Referred By: ANGELICA Confirmed By:LAURIE MONAHAN
[2018-04-02] MEDS ORDERED: NIFEdipine XL 90 MG TAB PO SCH (09:00)
--- NOTE | 2018-04-02 11:56 | DIS ---
DATE OF ADMISSION: 03/29/2018 DATE OF DISCHARGE: 04/01/2018 The patient was seen and examined on the day of discharge, denies any new complaints, no chest pain, shortness of breath, palpitations. DISCHARGE DISPOSITION: Inpatient rehabilitation. DISCHARGE MEDICATIONS: 1. Clonidine as needed. 2. Clonidine dose was increased to 0.1 mg daily from 0.05 mg daily. 3. Lasix 20 mg daily. 4. Procardia-XL dose was increased to 30 mg 3 times a day from 30 mg twice a day per Cardiology. All other home medications were left, unchanged. ALLERGIES: No known drug allergies. INPATIENT CONSULTANTS: 1. Cardiology, Dr. Ricketts 2. Gastroenterology consultation, Dr. Coburn. 3. Nephrology consultation, Dr. Solis. BRIEF HOSPITAL COURSE: The patient is an 82-year-old male with paroxysmal atrial fibrillation, hypertension, hyperlipidemia, and diabetes mellitus type 2 , presented to the hospital on 03/29/2018 with shortness of breath/volume overload. He was transferred from inpatient rehabilitation. Please refer to the history and physical for further details. The patient was admitted to the telemetry unit with a diagnosis of acute diastolic heart failure exacerbation. He showed good improvement with diuretics. His echocardiogram showed left ventricular ejection fraction of 60%- 65% with mild to moderate aortic regurgitation, mild aortic stenosis and moderate pulmonic regurgitation. He was evaluated by Cardiology and Nephrology as well as Gastroenterology due to Hemoccult positive stool; however, his hemoglobin stayed stable. His creatinine on the day of discharge is 2.53 from 2.73 on admission. His hemoglobin on the day of discharge is 8.9. He has been cleared by consultants for discharge. His hypertension medications have been optimized by Cardiology. FINAL DIAGNOSES: 1. Acute on chronic diastolic heart failure exacerbation/volume overload. Please note that patient was on IV fluids for acute kidney injury at the rehabilitation. 2. Acute kidney injury on chronic kidney disease stage 3, improving. 3. Recent right ankle fracture. 4. Bilateral lower extremity edema. Deep venous thrombosis was ruled out. 5. Questionable melena with suspected acute blood loss anemia. Hemoglobin remained stable. He was advised to follow up with Dr. Dominique as an outpatient. 6. Recent urinary tract infection. He completed antibiotics per family report. 7. Hypertension. 8. Diabetes mellitus type 2. 9. Hyperlipidemia. 10. Gastroesophageal reflux disease. 11. Benign prostatic hypertrophy. 12. Gout with recent flare. Patient will continue prednisone for 1-2 more days. 13. Recent toxic metabolic encephalopathy that was secondary to narcotics, improved. CT brain was negative. 14. Chronic Afib - not a candidate for anticoagulation due to Anemia/suspected GI bleed. Plan of care was discussed with the patient and the family in detail. They stated understanding. MTDD
== END 2018-04-01 15:35 | DRG 291 ==
LOC: 2NO 14:59
PROVIDERS: ADMIT Family Medicine; ATTEND Family Medicine
DX: I13.0 Hypertensive heart and chronic kidney disease with heart failure and stage 1 through stage 4 chronic kidney disease, or unspecified chronic kidney disease (principal); I50.33 Acute on chronic diastolic (congestive) heart failure; N17.9 Acute kidney failure, unspecified; D62 Acute posthemorrhagic anemia; K92.1 Melena; I48.0 Paroxysmal atrial fibrillation; E78.5 Hyperlipidemia, unspecified; E11.22 Type 2 diabetes mellitus with diabetic chronic kidney disease; N18.3 Chronic kidney disease, stage 3 (moderate); Z87.442 Personal history of urinary calculi; M10.9 Gout, unspecified; R53.81 Other malaise; I35.1 Nonrheumatic aortic (valve) insufficiency; Z85.46 Personal history of malignant neoplasm of prostate; Z79.899 Other long term (current) drug therapy; F41.9 Anxiety disorder, unspecified; F32.9 Major depressive disorder, single episode, unspecified; K21.9 Gastro-esophageal reflux disease without esophagitis; N40.0 Benign prostatic hyperplasia without lower urinary tract symptoms
CPT/HCPCS: 36415; 36416; 80048; 82274; 82728; 83540; 83550; 83735; 84484; 85025; 86850; 86900; 86901; 93005; 93010; 93306; 93970; 94640; 94760; C9113; G8978-GP-CM; G8979-GP-CL; G8987-GO-CL; G8988-GO-CJ; J1940; J2405; J7506; J7620

== ENCOUNTER 2018-08-09 12:23 | Inpatient (IN) | payer MEDICARE ==
[2018-08-09] MEDS ORDERED: Acetaminophen 500 MG TAB ONE (12:47)
[2018-08-09 12:59] LABS: #Eosinphils 0.1 thou/uL (0.0-0.7); #Lymphocytes 0.4 thou/uL (1.20-3.40); #Monocytes 0.5 thou/uL (0.11-0.59); #Neutrophils 7.4 thou/uL (1.40-6.50); %Basophils 0.2 % (0.0-1.0); %Eosinophils 0.6 % (0.0-10.0); %Lymphocytes 4.8 % (21.0-51.0); %Monocytes 5.6 % (0.0-10.0); %Neutrophils 88.8 % (42.0-75.0); Hemoglobin 9.6 g/dL (14.0-18.0); Mean Corpuscular HGB CONC 31.9 g/dL (32.0-36.0); Mean Corpuscular Hemoglobin 31.7 pg (27.0-31.0); Mean Corpuscular Volume 99.4 fL (78.0-98.0); Mean Platelet Volume 7.4 fL (7.4-10.4); Platelet Count 176 thou/uL (130-400); RBC Distribution Width 15.7 % (11.5-14.5); Red Blood Cell (RBC) Count 3.03 mill/uL (4.70-6.10); White Blood Cell (WBC) Count 8.3 thou/uL (4.8-10.8)
--- NOTE | 2018-08-09 13:14 | RAD ---
FExam: Chest one view HISTORY:Cough. Shortness of breath. Comparison: 03/29/2018 FINDINGS: Cardiac silhouette:Enlarged. Atherosclerosis of the aorta. Pulmonary vessels: Normal Costophrenic angles: Probable left-sided pleural effusion LUNGS: Bilateral perihilar, left greater than right alveolar opacities. Pneumothorax: None Osseous abnormalities: None IMPRESSION: 1. Bilateral perihilar, left greater than right opacities. Alveolar opacification may be due to edema or pneumonia. Continued surveillance is recommended.
[2018-08-09 13:20] LABS: ALT (SGPT) 14 U/L (8-55); AST (SGOT) 12 U/L (5-34); Albumin 3.5 g/dL (3.4-4.8); Alkaline Phosphatase 63 U/L (40-150); Anion Gap 17 mmol/L (10-20); BUN (Urea Nitrogen) 57 mg/dL (8.4-25.7); Bilirubin, Total 0.9 mg/dL (0.2-1.2); Calc. Creatinine Clearance 0 mL/min (70-130); Calcium 9.6 mg/dL (7.8-10.44); Carbon Dioxide 24 mmol/L (23-31); Chloride 105 mmol/L (98-107); Estimated GFR-MDRD 23; Globulin 2.4 g/dL (2.4-3.5); Glucose 114 mg/dL (83-110); Protein, Total 5.9 g/dL (5.8-8.1); Sodium 142 mmol/L (136-145)
[2018-08-09] MEDS ORDERED: Piperacillin/Tazobactam 4.5 GM VIAL ONE (13:29)
[2018-08-09 13:41] LABS: CKMB 0.7 ng/mL (0-6.6)
[2018-08-09] MEDS ORDERED: Vancomycin HCl 1.5 GM in Sodium Chloride 0.9% 250 ML 300 ML IVPB SCH (13:45)
[2018-08-09 13:50] LABS: Bilirubin Negative (Negative); Blood, Urine Trace (Negative); Clarity CLOUDY (Clear); Glucose, Urine (Dipstick) Negative (Negative); Leukocyte Moderate (Negative); Nitrite Negative (Negative); Protein, Urine (Dipstick) 100 mg/dL (Neg-Trace); Specific Gravity, Urine 1.013 (1.002-1.036)
[2018-08-09 13:52] LABS: Hyaline Casts/LPF 4-6 HYALINE CAST LPF (0-3 Hyaline); Pathc Cast-AUWi Flag 0.68 (0-2.49); RBC/HPF 0-3 HPF (0-3); WBC/HPF 21-50 HPF (0-3)
[2018-08-09 14:04] LABS: Bacteria/HPF Rare-Few HPF (None Seen)
--- NOTE | 2018-08-09 15:00 | CT ---
CT BRAIN NONCONTRAST: HISTORY: 82-year-old male with altered mental status, increasing confusion. FINDINGS: There is no midline shift or any other mass effect. There is no evidence of acute intracranial hemor rhage, large cortical infarct, obstructive hydrocephalus, or extraaxial fluid collection. The calvar ium is intact. There is diffuse parenchymal volume loss. There are low attenuation areas in the whi te matter. These are nonspecific, but in a patient of this age, they are probably chronic ischemic w ynai matter changes due to microvascular atherosclerosis. There is severe partial opacification of th e right sphenoid air cell. IMPRESSION: 1) No acute intracranial findings. 2) Involutional changes and chronic ischemic white matter changes. 3) Sphenoid sinus disease. kizzy POS: EMANEUL
[2018-08-09 15:32] LABS: Troponin I 0.043 ng/mL (< 0.028)
[2018-08-09 17:16] LABS: Lactic Acid 1.4 mmol/L (0.5-2.2)
[2018-08-09] MEDS: cefTRIAXone\\ROCEPHIN 1 GM in Sodium Chloride 0.9% 100 ML IVPB SCH (17:33)
[2018-08-09] MEDS: Tamsulosin HCl 0.4 MG CAP PO SCH (17:33)
[2018-08-09 17:34] VITALS: BMI 26.4
[2018-08-09] MEDS ORDERED: Piperacillin/Tazobactam 3.375 GM in Sodium Chloride 0.9% 100 ML IVPB SCH (18:00)
[2018-08-09] MEDS ORDERED: Dextrose 50% Abboject 50 ML SYRINGE IVP PRN (19:00)
[2018-08-09] MEDS ORDERED: Dextrose 5% in Water 1,000 ML IV PRN (19:00)
[2018-08-09] MEDS: Azithromycin 500 MG in Sodium Chloride 0.9% 250 ML 250 ML IVPB SCH (19:23)
[2018-08-09] MEDS: NIFEdipine XL 30 MG TAB PO SCH (19:51)
[2018-08-09] MEDS: Fenofibrate Nanocrystallized 145 MG TAB PO SCH (19:51)
[2018-08-09] MEDS: Metoprolol Tartrate 50 MG TAB PO SCH (19:51)
--- NOTE | 2018-08-10 00:12 | HP ---
CHIEF COMPLAINT: Cough. HISTORY OF PRESENT ILLNESS: The patient is an 82-year-old male with past medical history of atrial fibrillation. He is not on any anticoagulation due to multiple falls. The patient also has a history of gout and chronic kidney disease. He presents to the hospital with complaints of cough. The patient's son, who is at the bedside states that the patient was doing well on Monday; however, today, the patient started having cough. The patient denied any fevers or chills. He denied any shortness of breath. At this time, the patient's son took the patient to the PCP and given the fact that the patient had worsening cough and worsening lower extremity edema, I was called by the PCP's office to admit this patient. The patient actually was seen in the ED and was noted to have pneumonia. I did review the medications with the patient's son and daughter, who stated that the patient is not currently on any immunocompromise medications, especially prednisone. Also a family member indicated that the patient has been falling multiple times and is currently not on any anticoagulation. PAST MEDICAL HISTORY: As of the followin. Chronic kidney disease, stage 3. 2. Diabetes type 2. 3. Hypertension. 4. Hyperlipidemia. 5. History of renal calculi. 6. Gout. 7. Physical deconditioning. 8. Aortic valve regurgitation. 9. History of prostate cancer. 10. Paroxysmal atrial fibrillation. PAST SURGICAL HISTORY: He has had a cardiac cath and rotator cuff surgery. ALLERGIES: NO KNOWN DRUG ALLERGIES. MEDICATIONS: 1. Aspirin 81 mg daily. 2. Citalopram 20 mg daily. 3. Clonidine 0.5 mg daily. 4. Colchicine 0.6 mg b.i.d. 5. Fenofibrate 145 mcg daily. 6. Metoprolol 50 mg b.i.d. 7. Procardia 30 mg b.i.d. 8. MiraLAX 17 g daily. SOCIAL HISTORY: The patient currently lives at home alone. He is a full code and makes his own decision. He denies any history of smoking, alcohol, or drug use. FAMILY HISTORY: Negative for premature coronary artery disease. REVIEW OF SYSTEMS: All negative except for the ones mentioned above in the HPI. PHYSICAL EXAMINATION: VITAL SIGNS: Are as of the following; temperature 97.5, heart rate 94, respirations 18, saturation 87% on 3 L, blood pressure 175/82. GENERAL: He is awake, alert, and oriented x3. Does not appear in any distress. CV: Irregularly irregular. No murmurs heard. LUNGS: Mild crackles to bilateral lower bases. No rhonchi or wheezes noted. ABDOMEN: Soft and nontender. Bowel sounds are present x2. EXTREMITIES: +2 lower extremity pitting edema. NEUROVASCULAR: No focal deficits noted. SKIN: He has multiple petechiae and bruising on his bilateral upper extremities and some in his bilateral lower extremities. LABORATORY RESULTS: As of the following; WBCs of 8.3, hemoglobin of 9.6, hematocrit of 30.2, platelets of 176. Chemistry; sodium of 142, potassium of 4.0, BUN of 57, creatinine of 2.69. He has mild elevated troponins at 0.043. BNP was 1334. His chest x-ray that was done in the ER indicated bilateral, perihilar, left greater than right opacities, edema versus pneumonia. ASSESSMENT AND PLAN: The patient is an 82-year-old male, who presents to the hospital with cough: 1. Pneumonia, most likely community-acquired pneumonia. The patient has not been hospitalized since April. I will start him on ceftriaxone and azithromycin. We will also get a sputum culture and continue to monitor. 2. Chronic kidney disease. We will consult Dr. Solis. The patient might need a little bit of diuretics; however, at this time, I will hold off. He only got 1 L in the ER. Use fluids with caution. 3. History of atrial fibrillation, currently not on any anticoagulation. We will continue an aspirin. 4. History of benign prostatic hyperplasia. We will continue his Flomax. 5. History of gout. We will continue his gout medication. 6. DVT prophylaxis. We will put the patient on subcu heparin and we will also get physical therapy. 7. The patient's pre decondition, he will require some rehab on discharge. Also CT head given the patient's multiple falls. Job ID: [id number]
[2018-08-10 06:49] LABS: #Eosinphils 0.1 thou/uL (0.0-0.7); #Lymphocytes 0.6 thou/uL (1.20-3.40); #Monocytes 0.4 thou/uL (0.11-0.59); #Neutrophils 6.2 thou/uL (1.40-6.50); %Basophils 0.4 % (0.0-1.0); %Eosinophils 1.4 % (0.0-10.0); %Lymphocytes 8.1 % (21.0-51.0); %Monocytes 5.9 % (0.0-10.0); %Neutrophils 84.2 % (42.0-75.0); Mean Corpuscular HGB CONC 32.1 g/dL (32.0-36.0); Mean Corpuscular Hemoglobin 32.2 pg (27.0-31.0); Mean Platelet Volume 7.7 fL (7.4-10.4); Platelet Count 131 thou/uL (130-400); RBC Distribution Width 15.8 % (11.5-14.5); Red Blood Cell (RBC) Count 2.49 mill/uL (4.70-6.10); White Blood Cell (WBC) Count 7.3 thou/uL (4.8-10.8)
[2018-08-10 07:17] LABS: Anion Gap 15 mmol/L (10-20); BUN (Urea Nitrogen) 55 mg/dL (8.4-25.7); Calc. Creatinine Clearance 27 mL/min (70-130); Carbon Dioxide 23 mmol/L (23-31); Chloride 109 mmol/L (98-107); Estimated GFR-MDRD 24; Glucose 112 mg/dL (83-110); Potassium 3.5 mmol/L (3.5-5.1); Sodium 143 mmol/L (136-145)
--- NOTE | 2018-08-10 10:04 | ULT ---
[facility] lower extremity venous Doppler ultrasound: 08/10/2018 COMPARISON: None HISTORY: Pain and swelling, edema, assess for DVT TECHNIQUE: Multiplanar grayscale sonographic imaging of the venous structures of the left lower extre mity obtained with color flow and spectral analysis FINDINGS: Left common femoral vein, greater saphenous vein, profunda femoral vein, femoral vein, popl iteal vein, and posterior tibial vein are patent. Normal blood flow, augmentation, and compression wi thin the deep venous system on the left. No evidence for deep venous thrombosis. IMPRESSION: No evidence for deep venous thrombosis of the left lower extremity.
--- NOTE | 2018-08-10 10:15 | CON ---
DATE OF CONSULTATION: HISTORY OF PRESENT ILLNESS: Mr. Oates is an 82-year-old white male, who was admitted for fever. This was associated with some confusion. CT scan of the brain was essentially negative. Chest x-ray shows possibility of pneumonia. He is being currently treated with IV antibiotics. We are being consulted for his chronic renal failure. REVIEW OF SYSTEMS: Positive for confusion. No chest pain. Mild shortness of breath. Positive for productive cough. Positive for fever. No diarrhea. No syncopal episode. No nausea. No vomiting. No constipation. No dysuria. No hematochezia. No melena. No hematemesis. No headache. PAST MEDICAL HISTORY: 1. Chronic renal failure. 2. Type 2 diabetes mellitus. 3. Longstanding hypertension. 4. Status post paroxysmal atrial fibrillation. 5. History of prostate cancer. 6. Aortic valve regurgitation. 7. Gout. 8. Nephrolithiasis. 9. Status post CHF. PAST SURGICAL HISTORY: 1. Status post cardiac catheterization. 2. Status post rotator cuff surgery. ALLERGIES: NONE. TRAUMA: Status post right ankle fracture. IMMUNIZATIONS: Up-to-date. HOSPITALIZATIONS: Please see past medical history. SOCIAL HISTORY: The patient lives in the [facility]. He has live-in girlfriend and several children. Currently, no smoking. No alcohol intake. Sedentary lifestyle. FAMILY HISTORY: No family history of ESRD. PHYSICAL EXAMINATION: VITAL SIGNS: Blood pressure is 142/66, heart rate 99, respiratory rate 18, temperature 98.6, pulse ox 91%. GENERAL: Noted to be awake, alert, comfortable, not in distress. SKIN: Adequate turgor. HEENT: Slightly pale conjunctivae. Anicteric sclerae. NECK: No neck mass. No carotid bruits. No JVD. CHEST: No deformities. LUNGS: Decreased breath sounds. HEART: Normal sinus rhythm. No murmur. No gallops. No rubs. ABDOMEN: Globular, soft, and nontender. No masses. EXTREMITIES: Positive for edema. MEDICATIONS: Medications of August 10, 2018: 1. Aspirin 81 mg daily. 2. Azithromycin 500 mg IV q.4. 3. Ceftriaxone 1 g IV q.24 hours. 4. Tricor 145 mg at bedtime. 5. Lopressor 50 mg p.o. b.i.d. 6. Nifedipine, the patient is currently on 30 mg XL tablet t.i.d. 7. Protonix 40 mg tablet once a day. 8. Tamsulosin 0.4 mg once a day. 9. Status post vancomycin. LABORATORY DATA: Laboratories of August 10, 2018: White count 7.2, hemoglobin 8, hematocrit 24.9. Sodium 143, potassium 3.5, chloride 109, carbon dioxide 23, BUN 55, creatinine 2.61, glucose 112, calcium 9.0. Troponin I of 0.043. Chest x-ray of August 09, 2018, shows bilateral perihilar opacities, left greater than the right. Edema versus pneumonia. CT scan of the brain, no acute intracranial abnormality. ASSESSMENT AND PLAN: 1. Chronic renal failure - stable renal function. Continue supportive care. We will continue to hold off diuretics for the moment. 2. Shortness of breath - with findings of patchy infiltrates as well as fever and productive cough. We are considering a possible pneumonia with this patient. In addition, a nasal swab for flu was done. This was said to be negative. 3. Anemia. Continue to observe. 4. The patient is currently being ruled out for deep venous thrombosis. A cardiac echo and carotid Doppler will also be ordered. 5. Overall, agree with current management. Job ID: [id number]
--- NOTE | 2018-08-10 10:48 | ULT ---
FCarotid arterial Doppler ultrasound: 08/10/2018 COMPARISON: None HISTORY: Confusion, assess for arterial stenosis TECHNIQUE: Multiplanar grayscale sonographic imaging of the arterial structures of the neck obtained with color flow and spectral analysis FINDINGS: Antegrade blood flow and normal arterial waveforms are documented within the carotid and ve rtebral system bilaterally. Peak systolic velocity of the right common carotid artery is 68 cm/s, of right internal carotid arter y is 121 cm/s, and of right external carotid artery is 98 cm/s. Peak systolic velocity of the left common carotid artery is 95 cm/s, of right internal carotid artery is 95 cm/s, and of the left external carotid artery is 85 cm/s. IC/CC ratio is 1.8 on the right and 1.0 on the left. IMPRESSION: No hemodynamically significant stenosis on the basis of sonographic velocity criteria.
[2018-08-10] MEDS: Metoprolol Tartrate 50 MG TAB PO SCH ×2 (11:15→21:06)
[2018-08-10] MEDS: Aspirin Chewable 81 MG TAB PO SCH (11:15)
[2018-08-10] MEDS: Acetaminophen 325 MG TAB PO PRN ×2 (11:15→16:55)
[2018-08-10] MEDS: NIFEdipine XL 30 MG TAB PO SCH ×3 (11:16→21:05)
[2018-08-10] MEDS: cefTRIAXone\\ROCEPHIN 1 GM in Sodium Chloride 0.9% 100 ML IVPB SCH (16:54)
[2018-08-10] MEDS: Tamsulosin HCl 0.4 MG CAP PO SCH (16:55)
[2018-08-10] MEDS: Azithromycin 500 MG in Sodium Chloride 0.9% 250 ML 250 ML IVPB SCH (17:59)
--- NOTE | 2018-08-10 18:58 | PDOC.PN ---
- Subjective Encounter Start Date: 08/10/18 Encounter Start Time: 07:00 Pt seen for followup re: sepsis. Denies chest pain, shortness of breath, fevers or chills. - Objective Resuscitation Status - Order Detail: 08/09/18 15:01 Resuscitation Status Routine Resuscitation Status: FULL: Full Resuscitation MAR Reviewed: Yes Vital Signs & Weight: Vital Signs (12 hours) Temp Pulse Pulse Pulse Resp BP BP 08/10/18 15:51 82 124/62 08/10/18 15:48 98.0 F 79 16 08/10/18 13:31 74 84 123/58 L 08/10/18 12:00 98.1 F 82 16 08/10/18 11:16 110 H 140/83 08/10/18 08:00 98.6 F 99 18 BP BP Pulse Ox Pulse Ox Pulse Ox 08/10/18 15:51 08/10/18 15:48 136/65 91 L 08/10/18 13:31 122/61 90 L 88 L 08/10/18 12:00 132/70 91 L 08/10/18 11:16 08/10/18 08:00 142/66 H 91 L Weight Weight 184 lb 9.6 oz I&O: 08/09/18 08/10/18 08/11/18 06:59 06:59 06:59 Intake Total 1026 1431 Output Total 700 Balance 326 1431 Result Diagrams: 08/10/18 05:11 08/10/18 05:11 Additional Labs: Accuchecks 08/10/18 08/10/18 08/10/18 17:02 12:39 05:39 POC Glucose 147 H 140 H 134 H 08/09/18 20:29 POC Glucose 149 H EKG Reviewed by me: Yes (Tele: aj olmos) Phys Exam - Physical Examination Constitutional: NAD HEENT: moist MMs Neck: supple Respiratory: clear to auscultation bilateral Cardiovascular: irregular Gastrointestinal: soft Neurological: moves all 4 limbs Psychiatric: normal affect Dx/Plan (1) Sepsis Code(s): A41.9 - SEPSIS, UNSPECIFIED ORGANISM Status: Acute Comment: secondary to pneumonia, UTI. Improving. (2) Acute metabolic encephalopathy Code(s): G93.41 - METABOLIC ENCEPHALOPATHY Status: Acute Comment: Most likely secondary to infection (3) Pneumonia Code(s): J18.9 - PNEUMONIA, UNSPECIFIED ORGANISM Status: Acute Comment: continue antibiotics as below (4) UTI (urinary tract infection) Status: Acute Comment: continue antibiotics as below (5) Chronic kidney disease, stage 3 Code(s): N18.3 - CHRONIC KIDNEY DISEASE, STAGE 3 (MODERATE) Status: Chronic Comment: nephrology following (6) HTN (hypertension) Code(s): I10 - ESSENTIAL (PRIMARY) HYPERTENSION Status: Chronic Comment: controlled (7) Atrial fibrillation Code(s): I48.91 - UNSPECIFIED ATRIAL FIBRILLATION Status: Chronic Comment: pt not on anticoagulation due to fall risk (8) 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 Review of Systems - Review of Systems Respiratory: Cough, Sputum. negative: Hemoptysis, SOB with Excertion, Pleuritic Pain, Wheezing Cardiovascular: negative: chest pain, palpitations, orthopnea, paroxysmal nocturnal dyspnea, edema, light headedness - Medications/Allergies Allergies/Adverse Reactions: Allergies Allergy/AdvReac Type Severity Reaction Status Date / Time No Known Allergies Allergy Verified 06/09/14 03:46 Medications: Current Medications Acetaminophen (Tylenol) 650 mg PO Q4H PRN PRN Reason: Headache/Fever/Mild Pain (1-3) Last Admin: 08/10/18 16:55 Dose: 650 mg Aspirin (Aspirin Chewable) 81 mg PO DAILY [facility] Last Admin: 08/10/18 11:15 Dose: 81 mg Dextrose/Water (Dextrose 50%) 25 gm IVP PRN PRN PRN Reason: HYPOGLYCEMIA PROTOCOL Fenofibrate (Tricor) 145 mg PO HS [facility] Last Admin: 08/09/18 19:51 Dose: 145 mg Glucagon (Glucagon) 1 mg IM PRN PRN PRN Reason: HYPOGLYCEMIA PROTOCOL Azithromycin 500 mg/ Sodium (Chloride) 250 mls @ 250 mls/hr IVPB Q24HR [facility] Last Admin: 08/10/18 17:59 Dose: 250 mls Ceftriaxone Sodium 1 gm/ (Sodium Chloride) 100 mls @ 200 mls/hr IVPB Q24HR [facility] Last Admin: 08/10/18 16:54 Dose: 100 mls Dextrose/Water (D5w) 1,000 mls @ 0 mls/hr IV INF PRN PRN Reason: HYPOGLYCEMIA PROTOCOL Insulin Human Lispro (Humalog) 0 units SC .MILD SLIDING SCALE PRN; Protocol PRN Reason: MILD SLIDING SCALE Metoprolol Tartrate (Lopressor) 50 mg PO BID [facility] Last Admin: 08/10/18 11:15 Dose: 50 mg Nifedipine (Procardia Xl) 30 mg PO TID [facility] Last Admin: 08/10/18 15:51 Dose: 30 mg Pantoprazole Sodium (Protonix) 40 mg PO DAILY [facility] Last Admin: 08/10/18 11:15 Dose: 40 mg Sodium Chloride (Flush - Normal Saline) 10 ml IVF Q12HR [facility] Last Admin: 08/10/18 11:20 Dose: 10 ml Sodium Chloride (Flush - Normal Saline) 10 ml IVF PRN PRN PRN Reason: Saline Flush Tamsulosin HCl (Flomax) 0.4 mg PO QPM-WM [facility] Last Admin: 08/10/18 16:55 Dose: 0.4 mg
[2018-08-10] MEDS: Fenofibrate Nanocrystallized 145 MG TAB PO SCH (21:00)
--- NOTE | 2018-08-10 23:16 | RAD ---
FExam: Chest one view HISTORY:Cough, short of breath Comparison: 08/09/2018 FINDINGS: Lungs: Persistent bilateral consolidation, more pronounced on the left Cardiac silhouette:Enlarged Pulmonary vessels: Engorged Pleural Spaces: Pleural-based density at inferior left chest Pneumothorax: None Osseous abnormalities: None of acuity. IMPRESSION: Persistent bilateral pulmonary parenchymal opacities as well as pleural-based density at the inferior left chest, favoring multifocal pneumonia. Superimposed edema also likely present. Follow-up is recommended to resolution.
[2018-08-11 06:12] LABS: #Eosinphils 0.2 thou/uL (0.0-0.7); #Lymphocytes 0.6 thou/uL (1.20-3.40); #Monocytes 0.5 thou/uL (0.11-0.59); #Neutrophils 7.7 thou/uL (1.40-6.50); %Basophils 0.2 % (0.0-1.0); %Eosinophils 2.1 % (0.0-10.0); %Lymphocytes 6.8 % (21.0-51.0); %Monocytes 5.6 % (0.0-10.0); %Neutrophils 85.3 % (42.0-75.0); Hemoglobin 8.2 g/dL (14.0-18.0); Mean Corpuscular HGB CONC 32.1 g/dL (32.0-36.0); Mean Corpuscular Hemoglobin 31.5 pg (27.0-31.0); Mean Platelet Volume 7.3 fL (7.4-10.4); Platelet Count 178 thou/uL (130-400); RBC Distribution Width 15.5 % (11.5-14.5); White Blood Cell (WBC) Count 9.1 thou/uL (4.8-10.8)
[2018-08-11 06:33] LABS: Anion Gap 17 mmol/L (10-20); BUN (Urea Nitrogen) 66 mg/dL (8.4-25.7); Calc. Creatinine Clearance 23 mL/min (70-130); Calcium 9.1 mg/dL (7.8-10.44); Carbon Dioxide 21 mmol/L (23-31); Chloride 105 mmol/L (98-107); Estimated GFR-MDRD 20; Glucose 134 mg/dL (83-110); Potassium 3.4 mmol/L (3.5-5.1); Sodium 140 mmol/L (136-145)
[2018-08-11] MEDS ORDERED: Albumin 25% 25 GM/100 ML BOT IVPB ONE (10:15)
[2018-08-11] MEDS ORDERED: Potassium Chloride 20 MEQ TAB PO SCH (10:30)
[2018-08-11] MEDS ORDERED: Furosemide 40 MG/4 ML VIAL SLOW IVP SCH (10:30)
[2018-08-11] MEDS ORDERED: Epoetin (ESRD) 20,000 UNITS/ML SC SCH (10:30)
[2018-08-11] MEDS: NIFEdipine XL 30 MG TAB PO SCH (10:34)
[2018-08-11] MEDS: Aspirin Chewable 81 MG TAB PO SCH (10:56)
[2018-08-11] MEDS: Piperacillin/Tazobactam 2.25 GM in Sodium Chloride 0.9% 100 ML IVPB SCH ×3 (10:57→23:00)
--- NOTE | 2018-08-11 11:43 | PRG ---
DATE OF SERVICE: 08/11/2018 SUBJECTIVE: Mr. Pro is an 82-year-old white male, who was admitted for shortness of breath. He was found to have pneumonia as well as CHF. Cardiac echo is currently pending. He does have a history of CHF from diastolic dysfunction. He is on empiric IV antibiotics. Recently, ceftriaxone was changed to Zosyn. Still with mild shortness of breath. I noted his creatinine has worsen from yesterday. The patient is also noted to be anxious. According to the son, he was quite anxious last night. I did reassure the patient that he is doing well. OBJECTIVE: VITAL SIGNS: Blood pressure is 116/57, heart rate is 97, respiratory rate 20, and pulse ox 93%. GENERAL: Awake, alert, and comfortable, not in overt distress. SKIN: Adequate turgor. HEENT: Slightly pale conjunctivae. Anicteric sclerae. NECK: No neck mass. No carotid bruits. No JVD. CHEST: No deformities. LUNGS: Decreased breath sounds. HEART: Normal sinus rhythm. No murmur. No gallops. No rubs. ABDOMEN: Globular, soft, and nontender. No masses. EXTREMITIES: Mild trace edema. MEDICATIONS: Medications of August 11, 2018, reviewed. LABORATORY DATA: Laboratories of August 11, 2018, white count 9.1 and hemoglobin 8.2. Sodium 140, potassium 3.4, chloride 105, carbon dioxide 21, BUN 66, creatinine 3.02, glucose 134, and calcium 9.1. ASSESSMENT AND PLAN: 1. Acute kidney injury/chronic renal failure. Creatinine has worsen. I still suspect a component of prerenal azotemia with this patient. Urinalysis done on August 09, 2018 did not show any evidence of acute tubular necrosis. We will start the patient on albumin infusion 25 g IV q.6 hours. 2. Shortness of breath, multifactorial - pneumonia/congestive heart failure. We will give 1 time dose of Lasix 40 mg IV. He is also currently on IV antibiotics. 3. Mild hypokalemia. Potassium supplementation was given today. 4. Awaiting cardiac echo. 5. Anemia. Start Epogen and iron supplementation. Job ID: [id number]
[2018-08-11] MEDS: Albumin 25% 25 GM/100 ML BOT IVPB SCH ×3 (12:58→21:34)
--- NOTE | 2018-08-11 13:16 | PDOC.PN ---
- Subjective Encounter Start Date: 08/11/18 Encounter Start Time: 07:00 Pt seen for followup re: sepsis. Denies chest pain or shortness of breath. - Objective Resuscitation Status - Order Detail: 08/09/18 15:01 Resuscitation Status Routine Resuscitation Status: FULL: Full Resuscitation Vital Signs & Weight: Vital Signs (12 hours) Temp Pulse Pulse Pulse Pulse Resp BP 08/11/18 12:07 112 H 24 H 08/11/18 12:00 97.8 F 114 H 20 08/11/18 10:34 109 H 126/68 08/11/18 09:33 109 H 112 H 108 H 08/11/18 08:10 98.2 F 108 H 20 08/11/18 05:05 97 20 08/11/18 03:00 98.1 F 87 18 BP BP BP Pulse Ox Pulse Ox 08/11/18 12:07 08/11/18 12:00 124/60 88 L 08/11/18 10:34 08/11/18 09:33 134/58 L 144/72 H 91 L 08/11/18 08:10 134/58 L 92 L 08/11/18 05:05 116/57 L 93 L 08/11/18 03:00 109/57 L 91 L Weight Weight 184 lb 9.6 oz I&O: 08/10/18 08/11/18 08/12/18 06:59 06:59 06:59 Intake Total 1026 1671 Output Total 700 Balance 326 1671 Result Diagrams: 08/11/18 05:50 08/11/18 05:50 Additional Labs: Accuchecks 08/11/18 08/11/18 08/10/18 10:49 05:07 21:34 POC Glucose 169 H 140 H 162 H 08/10/18 17:02 POC Glucose 147 H Phys Exam - Physical Examination Constitutional: NAD HEENT: moist MMs Neck: supple Bibasal crackles Cardiovascular: RRR Gastrointestinal: soft Musculoskeletal: edema present Neurological: moves all 4 limbs Psychiatric: normal affect Dx/Plan (1) Sepsis Code(s): A41.9 - SEPSIS, UNSPECIFIED ORGANISM Status: Acute Comment: secondary to pneumonia, UTI. Continue IV antibiotics as below. (2) Acute metabolic encephalopathy Code(s): G93.41 - METABOLIC ENCEPHALOPATHY Status: Acute Comment: Most likely secondary to infection, improving (3) Pneumonia Code(s): J18.9 - PNEUMONIA, UNSPECIFIED ORGANISM Status: Acute Comment: continue antibiotics as below (4) UTI (urinary tract infection) Status: Acute Comment: ceftriaxone discontinued and Zosyn started (5) Chronic kidney disease, stage 3 Code(s): N18.3 - CHRONIC KIDNEY DISEASE, STAGE 3 (MODERATE) Status: Chronic Comment: nephrology following, creatinine 3.02 today (6) HTN (hypertension) Code(s): I10 - ESSENTIAL (PRIMARY) HYPERTENSION Status: Chronic Comment: controlled (7) Atrial fibrillation Code(s): I48.91 - UNSPECIFIED ATRIAL FIBRILLATION Status: Chronic Comment: pt not on anticoagulation due to fall risk, continue aspirin (8) 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 Review of Systems - Review of Systems Respiratory: negative: Cough, Shortness of Breath, SOB with Excertion, Pleuritic Pain, Wheezing Cardiovascular: negative: chest pain, palpitations, orthopnea, paroxysmal nocturnal dyspnea, edema, light headedness - Medications/Allergies Allergies/Adverse Reactions: Allergies Allergy/AdvReac Type Severity Reaction Status Date / Time No Known Allergies Allergy Verified 06/09/14 03:46 Medications: Current Medications Acetaminophen (Tylenol) 650 mg PO Q4H PRN PRN Reason: Headache/Fever/Mild Pain (1-3) Last Admin: 08/10/18 16:55 Dose: 650 mg Albumin Human (Albumin 25%) 25 gm IVPB Q6HR [facility] Stop: 08/12/18 06:01 Last Admin: 08/11/18 12:58 Dose: 25 gm Albuterol/Ipratropium (Duoneb) 3 ml NEB Q6H PRN PRN Reason: SOB Last Admin: 08/11/18 12:07 Dose: 3 ml Aspirin (Aspirin Chewable) 81 mg PO DAILY [facility] Last Admin: 08/11/18 10:56 Dose: 81 mg Dextrose/Water (Dextrose 50%) 25 gm IVP PRN PRN PRN Reason: HYPOGLYCEMIA PROTOCOL Epoetin Booker (Procrit) 7,500 units SC Q7D [facility] Last Admin: 08/11/18 12:58 Dose: 7,500 units Ferrous Sulfate (Feosol) 325 mg PO BID[facility] Glucagon (Glucagon) 1 mg IM PRN PRN PRN Reason: HYPOGLYCEMIA PROTOCOL Azithromycin 500 mg/ Sodium (Chloride) 250 mls @ 250 mls/hr IVPB Q24HR [facility] Last Admin: 08/10/18 17:59 Dose: 250 mls Dextrose/Water (D5w) 1,000 mls @ 0 mls/hr IV INF PRN PRN Reason: HYPOGLYCEMIA PROTOCOL Piperacillin Sod/Tazobactam (Sod 2.25 gm/ Sodium Chloride) 100 mls @ 200 mls/ hr IVPB Q6H [facility] Last Admin: 08/11/18 10:57 Dose: 100 mls Insulin Human Lispro (Humalog) 0 units SC .MILD SLIDING SCALE PRN; Protocol PRN Reason: MILD SLIDING SCALE Pantoprazole Sodium (Protonix) 40 mg PO DAILY [facility] Last Admin: 08/11/18 10:57 Dose: 40 mg Sodium Chloride (Flush - Normal Saline) 10 ml IVF Q12HR [facility] Last Admin: 08/11/18 10:57 Dose: 10 ml Sodium Chloride (Flush - Normal Saline) 10 ml IVF PRN PRN PRN Reason: Saline Flush Tamsulosin HCl (Flomax) 0.4 mg PO QPM-[facility] Last Admin: 08/10/18 16:55 Dose: 0.4 mg
[2018-08-11] MEDS: HumaLOG 300 UNITS/3 ML VIAL SC PRN ×2 (13:57→17:27)
[2018-08-11 15:42] VITALS: BP 127/70
[2018-08-11] MEDS ORDERED: Morphine 2 MG/ML SYRINGE SLOW IVP PRN (17:26)
[2018-08-11] MEDS ORDERED: Bacteriostatic Water 30 ML VIAL FS PRN (18:18)
--- NOTE | 2018-08-11 18:48 | CON ---
DATE OF CONSULTATION: 08/11/2018 REASON FOR CONSULTATION: Diastolic heart failure and atrial fibrillation. PRIMARY EVENT MARKETING COORDINATOR: Shannon Ricketts MD. HISTORY OF PRESENT ILLNESS: Mr. Pro is a very pleasant 82-year-old gentleman, a patient of Dr. Mike Ricketts. He has a previous history of chronic atrial fibrillation. He has not been on anticoagulation therapy for multiple reasons including falls and anemia. He was found to have a GI workup per Dr. Ricketts' last note in late May. He re-presented with pneumonia-type symptoms. He was diagnosed with community-acquired pneumonia. Last echo dated 03/30/2018 with LVEF 60% to 65% with chronic atrial fibrillation. PAST MEDICAL HISTORY: 1. Diabetes mellitus. 2. Hypertension. 3. Hyperlipidemia. 4. Chronic venous insufficiency. 5. Gout. 6. Prostate cancer. 7. Chronic atrial fibrillation. 8. Anemia. 9. Diastolic heart failure. 10. Lower extremity edema. 11. Acid reflux. HOME MEDICATIONS: Include, 1. Clonidine. 2. Lasix. 3. Aspirin. 4. Potassium. 5. Nexium. 6. Metoprolol. 7. Niacin. 8. Citalopram. 9. Flomax. 10. Beconase. PAST SURGICAL HISTORY: 1. Colonoscopy. 2. Lithotripsy. 3. Prostate cancer. 4. Radiation. 5. Skin cancer removal. 6. Rotator cuff surgery. 7. Teeth extraction. SOCIAL HISTORY: No current tobacco or alcohol use. ALLERGIES: CODEINE. REVIEW OF SYMPTOMS: A 10-point review of systems is reviewed and as above, otherwise negative. PHYSICAL EXAMINATION: GENERAL: Patient is a pleasant male, who is in no acute distress. The patient appears their stated age. VITAL SIGNS: Blood pressure 127/70, pulse 114 to 117, and respirations 20. NEUROLOGIC: The patient is alert and oriented x3 with no focal neurologic deficits. HEENT: Sclerae without icterus. Mouth has moist mucous membranes with normal pallor. NECK: No JVD. Carotid upstroke brisk. No bruits bilaterally. LUNGS: Crackles noted bilaterally. BACK: No scoliosis or kyphosis. CARDIAC: Irregularly irregular. ABDOMEN: Soft, nontender, nondistended. No peritoneal signs present. No hepatosplenomegaly. No abnormal striae. EXTREMITIES: 2+ femoral and 2+ dorsalis pedis pulses. No cyanosis, clubbing, or edema. SKIN: No gross abnormalities. PERTINENT LABORATORY DATA: Hemoglobin 8.2. Creatinine 3.02, GFR 20, potassium 3.4. IMPRESSION: 1. Chronic diastolic dysfunction. 2. Recently diagnosed pneumonia. 3. Chronic atrial fibrillation. 4. Chronic kidney disease. RECOMMENDATIONS: The patient is not felt to be an appropriate candidate for anticoagulation therapy. We will continue aspirin. He is currently on antibiotic therapy for pneumonia. Continue rate control with metoprolol 50 mg one p.o. b.i.d. We will increase if needed. He has been seen by Dr. Kd Solis for possible acute kidney injury and he feels it is prerenal. We therefore not recommended Lasix. We will follow with you. Job ID: [id number]
[2018-08-11] MEDS: Azithromycin 500 MG in Sodium Chloride 0.9% 250 ML 250 ML IVPB SCH (19:55)
[2018-08-11] MEDS: Ferrous Sulfate 325 MG TAB PO SCH (20:49)
[2018-08-11] MEDS: Tamsulosin HCl 0.4 MG CAP PO SCH (20:49)
--- NOTE | 2018-08-11 22:34 | CON ---
DATE OF CONSULTATION: 08/11/2018 HISTORY OF PRESENT ILLNESS: Mr. Pro is an 82-year-old male. He presented to the emergency room 2 days ago with complaints of shortness of breath going on for a week. He developed some confusion as well as a productive cough. He is febrile in the emergency room. He is admitted with a diagnosis of pneumonia. Chest radiograph showed a dense alveolar infiltrate involving almost his entire left lung. Repeat chest radiograph done yesterday shows the same thing. PAST MEDICAL HISTORY: 1. Remarkable for apparently multiple recent stents in rehab associated with arthritis and gout. 2. History of chronic kidney disease. 3. History of hypertension. 4. History of lipid disorder. 5. History of atrial fibrillation, hospitalized here in 2014. 6. History of type 2 diabetes. 7. History of BPH. 8. History of seasonal allergies. 9. History of nephrolithiasis with lithotripsy. 10. History of prostate cancer. 11. History of rotator cuff repair. 12. History of cardiac catheterization June 22 showing ectatic vessels, but no obstructing coronary disease. 13. History of hospitalization in March of 2018 for acute kidney injury, shortness of breath as well as lower extremity edema and confusion. 14. History of an ankle fracture last fall leading to trip to the rehab. 15. History of colon polyps resected in the past, 2007. 16. History of an echocardiogram in March of last year showing moderate mitral regurgitation and a normal ejection fraction. FAMILY HISTORY: Negative for lung disease in early age. SOCIAL HISTORY: He is not smoking, not drinking. He had limited ability to ambulate with a walker according to the family, going back several months. REVIEW OF SYSTEMS: A 10-point review of system completed, otherwise negative. He gets extremely short of breath when I just rolled him in bed to change his pull-up. I have recommended placement of a Mccormick catheter, especially since the Lasix was ordered today. PHYSICAL EXAMINATION: GENERAL: Mr. Pro is an 82-year-old male. VITAL SIGNS: Heart rate is 117. He is afebrile. Respiratory rates in the 20s. Oximetry is fluctuating between 87 and 93 on a 6 L cannula, blood pressure 127/ 70. He has decreased breath sounds on the left. He has rhonchi on the right. HEENT: Pupils react. HEAD: Unremarkable. NECK: Unremarkable. HEART: Regular rhythm, S1-S2 are normal. He has grade 2/6 systolic murmur. ABDOMEN: Soft and nontender. EXTREMITIES: Without clubbing, cyanosis, or edema. He has virtually no p.o. intake today. LABORATORY DATA: White count is 9.1, hemoglobin 8.2, platelets 178. Sodium 140, potassium 3.4, chloride 105, bicarb 21, BUN 66, creatinine 3.02, creatinine was 3.69 on admission. IMPRESSION: 1. Dense left lung pneumonia, likely downstream result of extreme deconditioning. 2. Chronic kidney disease with slight decline in renal function in the 24 hours. 3. Diabetes. 4. History of arthritis. 5. History of recent ankle fracture. 6. History of gout. 7. Anemia of chronic disease. He might benefit from BiPAP at night for muscle rest. He also might benefit from steroid treatments. His family thinks nebulizer treatments have helped. Low dose of morphine may help with his air hunger. For the BiPAP, he will need to be in the Intermediate Care Unit. He is also dealing with atrial fibrillation. He had enterococcus in his urine. He is vancomycin sensitive. I will see quantitation about the Enterococcus and colony-forming units. He would also benefit from Ensure supplements as opposed to eating ice and drinking water. His blood cultures fortunately are negative. The Rocephin will not cover enterococcus in his urine, so his antimicrobial therapy is switched to Zosyn. The Enterococcus was ampicillin sensitive. His prognosis is quite guarded. I am not sure he would survive intubation. At the time of this dictation, he remains a full code. Discussed all these issues with 2 sons and 1 daughter and daughter-in- law as well as family was in the room. TIME SPENT: This is a 70-minute consult, with greater than 50% of the time was spent on the unit coordinating care and. Job ID: [id number] [facility]
[2018-08-11] MEDS: methylPREDNISolone Sod Succ 40 MG VIAL IVP SCH (23:39)
[2018-08-12] MEDS: Albumin 25% 25 GM/100 ML BOT IVPB SCH ×2 (03:03→09:38)
[2018-08-12] MEDS ORDERED: Diltiazem HCl 125 MG, Admixture Fee 1 EACH in Sodium Chloride 0.9% 100 ML IVPB SCH (03:45)
[2018-08-12] MEDS: Piperacillin/Tazobactam 2.25 GM in Sodium Chloride 0.9% 100 ML IVPB SCH ×2 (04:25→09:39)
[2018-08-12 05:46] LABS: #Lymphocytes 0.2 thou/uL (1.20-3.40); #Monocytes 0.2 thou/uL (0.11-0.59); #Neutrophils 6.4 thou/uL (1.40-6.50); %Basophils 0.1 % (0.0-1.0); %Eosinophils 0.2 % (0.0-10.0); %Lymphocytes 2.9 % (21.0-51.0); %Monocytes 2.9 % (0.0-10.0); %Neutrophils 93.8 % (42.0-75.0); Hemoglobin 8.2 g/dL (14.0-18.0); Mean Corpuscular HGB CONC 32.5 g/dL (32.0-36.0); Mean Corpuscular Hemoglobin 31.4 pg (27.0-31.0); Mean Corpuscular Volume 96.8 fL (78.0-98.0); Mean Platelet Volume 6.8 fL (7.4-10.4); Platelet Count 160 thou/uL (130-400); RBC Distribution Width 15.6 % (11.5-14.5); Red Blood Cell (RBC) Count 2.61 mill/uL (4.70-6.10); White Blood Cell (WBC) Count 6.8 thou/uL (4.8-10.8)
[2018-08-12 06:06] LABS: Anion Gap 21 mmol/L (10-20); BUN (Urea Nitrogen) 66 mg/dL (8.4-25.7); Calc. Creatinine Clearance 23 mL/min (70-130); Calcium 9.8 mg/dL (7.8-10.44); Carbon Dioxide 18 mmol/L (23-31); Chloride 105 mmol/L (98-107); Estimated GFR-MDRD 20; Glucose 188 mg/dL (83-110); Potassium 3.3 mmol/L (3.5-5.1); Sodium 141 mmol/L (136-145)
[2018-08-12] MEDS: methylPREDNISolone Sod Succ 40 MG VIAL IVP SCH (06:20)
[2018-08-12 08:09] VITALS: TEMP 98.4
[2018-08-12] MEDS ORDERED: Albumin 25% 25 GM/100 ML BOT IVPB ONE (09:16)
[2018-08-12] MEDS: Ferrous Sulfate 325 MG TAB PO SCH (09:38)
[2018-08-12] MEDS: Aspirin Chewable 81 MG TAB PO SCH (09:38)
[2018-08-12] MEDS ORDERED: Albumin 25% 25 GM/100 ML BOT IVPB SCH (10:00)
[2018-08-12] MEDS ORDERED: Metoprolol Tartrate 25 MG TAB PO SCH ×3 (10:45→21:00)
[2018-08-12] MEDS ORDERED: Morphine 4 MG/ML VIAL SLOW IVP PRN ×2 (11:13→11:38)
--- NOTE | 2018-08-12 11:27 | PDOC.CTH ---
Cardiology Progress Note - Objective Vital Signs Temp Pulse Resp Pulse Ox 08/12/18 10:39 117 H 31 H 92 L 08/12/18 08:00 95 08/12/18 07:51 108 H 30 H 96 08/12/18 07:34 107 H 30 H 94 L 08/12/18 04:00 98.4 F 08/12/18 02:45 119 H 23 H 99 08/12/18 02:44 116 H 22 H 99 08/12/18 00:00 97.2 F L Weight 184 lb 9.6 oz 08/11/18 08/12/18 08/13/18 06:59 06:59 06:59 Intake Total 1671 1090 Output Total 770 Balance 1671 320 - Labs Result Diagrams: 08/12/18 05:36 08/12/18 05:36 Troponin/CKMB CK-MB (CK-2) 0.7 ng/mL (0-6.6) 08/09/18 12:40 Troponin I 0.043 ng/mL (< 0.028) H 08/09/18 14:54 - Assessment/Plan Atrial fibrillation pneumonia anemia recurrent falls DM Pt has not finished [facility] with GI to determine if he is a good candiate for ACT On Abx Control HR
[2018-08-12] MEDS ORDERED: Lorazepam 2 MG/ML VIAL ONE (11:37)
[2018-08-12] MEDS ORDERED: Lorazepam 2 MG/ML VIAL SLOW IVP PRN (11:37)
[2018-08-12] MEDS: Lorazepam 2 MG/ML VIAL SLOW IVP PRN ×5 (11:50→14:45)
--- NOTE | 2018-08-12 11:54 | PRG ---
DATE OF SERVICE: 08/12/2018 SUBJECTIVE: Mr. Pro is an 82-year-old white male, who was initially admitted for shortness of breath secondary to pneumonia, currently on IV antibiotics. We are following up this patient for acute kidney injury on top of his chronic renal failure. Empiric volume repletion with albumin has been given. He received one-time dose of Lasix yesterday. We are still awaiting for the official results of the cardiac echo. However, previous cardiac echo showed a normal EF and a suggestion of diastolic dysfunction. He also went to some degree of respiratory distress, currently on BiPAP. Pulmonary is following. No acute events noted this morning. OBJECTIVE: VITAL SIGNS: Blood pressure is noted at 132/79, heart rate 108, respiratory rate is 30, and pulse ox 96%. GENERAL: The patient is sleepy, but arousable, not in distress, noted on BiPAP. HEENT: Slightly pale conjunctivae. Anicteric sclerae. NECK: No neck mass. No carotid bruits. No JVD. CHEST: No deformities. LUNGS: Decreased breath sounds. HEART: Tachycardic. No murmur. No gallops or rubs. ABDOMEN: Globular, soft, and nontender. EXTREMITIES: Trace edema. MEDICATIONS: Medications of August 12, 2018 were reviewed. LABORATORY DATA: Laboratories of August 12, 2018; white count 6.8, hemoglobin 8.2. Sodium 141, potassium 3.3, chloride 105, carbon dioxide 18, BUN 66, creatinine 3.07, glucose 188, and calcium 9.8. ASSESSMENT AND PLAN: 1. Acute kidney injury/chronic renal failure. Creatinine is stable at 3.07. He has currently stage 4 chronic renal failure. No indication for any dialytic intervention. Continue supportive care. I would resume albumin infusion for another 1 day. 2. Anemia, currently started on Epogen and iron supplementation. 3. Pneumonia, on empiric IV antibiotics. 4. Acute respiratory distress - currently on BiPAP. The patient will probably not do well with intubation. Pulmonary is following. 5. Tachycardia - started low-dose metoprolol. Cardiology is following. Overall, prognosis remains guarded. Job ID: [id number]
[2018-08-12] MEDS: Morphine 10 MG/ML VIAL SLOW IVP PRN ×5 (11:57→14:45)
--- NOTE | 2018-08-12 12:24 | PRG ---
DATE OF SERVICE: 08/12/2018 SUBJECTIVE: Mr. Pro this morning has decided he is ready to stop. He is completely coherent, this was witnessed by family. He wanted BiPAP off and wanted to let him go to [facility]. He was placed on nasal cannula. At this point in time, he is tachypneic, but stable. We will give him morphine for comfort as I have explained to family. Proceed forward with comfort care per his wishes. I do feel he is totally competent to make this decision. Family supportive of this decision. The entire family is in the room. Job ID: [id number]
--- NOTE | 2018-08-13 05:14 | DIS ---
DATE OF ADMISSION: 08/09/2018 DATE OF DISCHARGE: 08/12/2018 SUMMARY: DATE OF : August 12, 2018. PRIMARY CARE PROVIDER: Fermin Monique MD. DIAGNOSES: 1. Acute respiratory failure. 2. Pneumonia. 3. [id number] stage 3 kidney disease. 4. Acute metabolic encephalopathy. 5. Sepsis. 6. Chronic diastolic dysfunction. 7. Chronic atrial fibrillation. CONSULTATIONS DURING THIS HOSPITALIZATION: 1. Nephrology, Dr. Solis. 2. Pulmonology, Dr. Matt. 3. Cardiology, Dr. Vazquez. HOSPITAL COURSE: Mr. Pro is a pleasant 82-year-old gentleman, who was admitted to [facility] on August 09, 2018, for pneumonia and [id number] kidney disease. He was seen by Nephrology Service. He was treated with antibiotics. He had left lower extremity venous Doppler on August 10, which did not show any evidence for deep vein thrombosis. He also had carotid Dopplers on August 10, which did not show any hemodynamically significant stenosis. He was seen by Pulmonology and Cardiology services. On the evening of August 11, he was transferred to [facility] for BiPAP therapy. On the morning of August 12, Mr. Pro wished for comfort measures. All active treatments were withdrawn. Mr. Pro at 1520 hours on August 12 2018. Many thanks for allowing me to participate in your patient's care. Please feel free to contact me with any questions or concerns. Job ID: [id number]
[2018-08-13 19:09] LABS: H. pylori IgA ABS Less than 9.0 units (0.0-8.9); H. pylori IgM ABS Less than 9.0 units (0.0-8.9)
== END 2018-08-12 16:51 | disposition expired | DRG 871 ==
LOC: ERS 12:23 → 2SE 15:56 → IMCU/EMU 08-11 19:24
PROVIDERS: ADMIT Internal Medicine; ATTEND Internal Medicine
PROC: 5A09357 Assistance with Respiratory Ventilation, Less than 24 Consecutive Hours, Continuous Positive Airway Pressure (ICD-10-PCS; principal; 2018-08-11)
DX: A41.81 Sepsis due to Enterococcus (principal); J18.9 Pneumonia, unspecified organism; G93.41 Metabolic encephalopathy; J96.00 Acute respiratory failure, unspecified whether with hypoxia or hypercapnia; N17.9 Acute kidney failure, unspecified; I13.0 Hypertensive heart and chronic kidney disease with heart failure and stage 1 through stage 4 chronic kidney disease, or unspecified chronic kidney disease; I50.32 Chronic diastolic (congestive) heart failure; N39.0 Urinary tract infection, site not specified; I48.2 Chronic atrial fibrillation; E11.22 Type 2 diabetes mellitus with diabetic chronic kidney disease; N18.3 Chronic kidney disease, stage 3 (moderate); E78.5 Hyperlipidemia, unspecified; N40.0 Benign prostatic hyperplasia without lower urinary tract symptoms; M10.9 Gout, unspecified; E87.6 Hypokalemia; D63.1 Anemia in chronic kidney disease; R29.6 Repeated falls; Z85.46 Personal history of malignant neoplasm of prostate; Z79.82 Long term (current) use of aspirin; Z79.899 Other long term (current) drug therapy
CPT/HCPCS: 36415; 36416; 51701; 70450; 71045; 80048; 80053; 81003; 81015; 82553; 83605; 83880; 84484; 85025; 87040; 87077; 87086; 87186; 87804; 93005; 93306; 93880; 94640; 94660; 96361; 96365; 96367; J0456; J0696; J1940; J2060; J2270; J2543; J2920; J3370; J7050; J7620; P9047; Q4081